=== PATIENT | male | born 1965 | race Caucasian/White ===

== ENCOUNTER 2019-07-07 11:07 | Emergency (ER) | payer OTHER, SELFPAY ==
[2019-07-07 11:13] VITALS: BP 160/133; PULSE 108; RESP 18; TEMP 36.4; O2SAT 94; BMI 32.8
--- NOTE | 2019-07-07 11:23 | ED_ITS ---
Entered by Kalpana Vivas, acting as scribe for Deborah Mari MD, [facility] [place], [place] 11:07 HPI - Chest Pain General: Chief Complaint: Chest Pain Stated Complaint: chest pain Time Seen by Provider: 07/07/19 11:23 Source: patient and RN notes reviewed Mode of arrival: ambulatory Limitations: no limitations History of Present Illness: HPI narrative: 54 yo male presents to ED with complaints of chest pain. The patient states he woke sore between shoulder blades, at 0600 felt like was getting bad heart burn, ate a package of Rolaids and drank 3 bottles of water. The patient has had A-Fib in the past and is on 3 different medications for his A-Fib. He said what he is feeling now feels worse than it has been in the past. The patient was to have been taking a blood thinner (Xarelto) but he has not taken it for 2 weeks. MD complaint: chest pain Pertinent past history: other (A-Fib, COPD, CHF, HTN, Obstructive Sleep Apnea) Onset (ago): hour(s) (5.5 (0600)) Timing of current episode: constant Prior episodes: Yes Onset: during rest Pain location: substernal Pain radiation: left scapula and right scapula Severity: moderate Quality: aching Relieving factors: nothing Exacerbating factors: exertion and movement Context: non compliance with medication (Xarelto) Associated symptoms: Reports palpitations; Deny abdominal pain, dyspnea, fever(s), nausea or vomiting Treatment prior to arrival: none Risk Factors: Coronary artery disease risk factors: hypertension Thoracic aortic dissection risk factors: none Pulmonary embolism risk factors: clotting disorder Review of Systems General: Reports: 10 or more systems reviewed and unremarkable except in HPI and below Const: Denies: fever, chills or body aches Eyes: Denies: change in vision or blurry vision ENMT: Denies: throat pain, enlarged tonsils, painful swallowing, hoarseness, mouth pain or swelling of lips/tongue Card: Reports: palpitations Resp: Denies: shortness of breath, productive cough or non-productive cough GI: Denies: abdominal pain, nausea or vomiting : Denies: flank pain, painful urination, urinary frequency, urinary urgency or urinary hesitancy Musc: Denies: neck pain, back pain or extremity swelling Skin/Breast: Denies: rash, itching or redness Neuro: Denies: headache, numbness in extremities or weakness in extremities Endo: Denies: excessive urination, excessive thirst or tired all the time PFSH ED PFSH: Medical History (Updated 07/07/19 @ 15:05 by Deborah Mari MD, [facility] [place] Atrial fibrillation CHF (congestive heart failure) COPD (chronic obstructive pulmonary disease) Hypercholesteremia Hypertension Obstructive sleep apnea Social History Smoking and tobacco status: current every day smoker Alcohol intake: current Alcohol intake frequency: holidays/special occasions only Physical Exam Const: COMMON NORMALS: no apparent distress, average body habitus, oriented x3, no limitations, healthy appearing, alert and well nourished HENMT: COMMON NORMALS: normocephalic, head/scalp atraumatic and moist oral mucous membranes HEAD & SCALP: normocephalic and atraumatic Eye: COMMON NORMALS: PERRL, EOMs intact bilaterally, conjunctivae normal and no scleral icterus CONJUNCTIVA: Yes conjunctivae normal PUPIL: Yes PERRL Neck/C-Spine: COMMON NORMALS: full ROM, supple, no meningeal signs, no JVD and no carotid bruits Chest: COMMONS NORMALS: inspection of chest normal and palpation of chest normal Resp: COMMON NORMALS: normal respiratory effort, no retractions, no use of accessory muscles, clear to auscultation bilaterally and percussion normal AUSCULTATION: clear to auscultation bilaterally PERCUSSION: percussion normal Cardio: COMMON NORMALS: no JVD, S1 normal heart sound, S2 normal heart sound, no gallops, no clicks, no murmurs, no rub and peripheral pulses 2+ throughout RATE: tachycardic RHYTHM: abnormal rhythm irregularly irregular HEART SOUNDS: S1 normal and S2 normal PERIPHERAL PULSES: pulses 2+ throughout GI: COMMON NORMALS: normal to inspection, nondistended, normoactive bowel sounds, soft to palpation, non-tender, no hepatosplenomegaly, no masses and no bruits PALPATION: Yes soft and Yes no hepatosplenomegaly : COMMON NORMALS: Yes no CVA tenderness BLADDER/KIDNEY EXAM: Yes no CVA tenderness Back/Pelvis: COMMON NORMALS: no CVA tenderness Extremity: COMMON NORMALS: normal to inspection, full ROM, normal capillary refill, no calf tenderness and no pedal edema Neuro: COMMON NORMALS: oriented x3 SENSORIUM/ORIENTATION: Yes alert MENINGEAL SIGNS: Yes no meningeal signs Skin: COMMON NORMALS: no rashes or lesions noted, no wounds, skin turgor normal, no jaundice, no petechiae and no mottling GENERAL SKIN EXAM: no rashes or lesions noted and turgor normal Course Reevaluation(s): Reevaluation #1: Patient seen. He is is sinus rhythm. HR is in the 70's. He is feeling better and is ready to be discharged. Discussed his lab and imaging findings with him. Negative for acute findings. We will discharge him home and he is advised to call his vegetable grower for follow-up. He voiced understanding and is in agreement with this plan. Time: 14:58 Vital Signs: Vital signs: Vital Signs Temperature 97.7 F 07/07/19 15:28 Pulse Rate 79 07/07/19 15:28 Respiratory Rate 16 07/07/19 15:28 Blood Pressure 146/96 07/07/19 15:28 Pulse Oximetry 95 07/07/19 15:28 MDM - Chest Pain MDM Narrative: Medical decision making narrative: 54-year-old gentleman who presents to the emergency department in atrial fibrillation with rapid ventricular response. He has a history of A. fib and several years ago had an ablation. He has been stable and fine since then, however he takes metoprolol, sotalol, diltiazem for his A. fib. Symptoms started earlier today and persisted. Associated symptoms included ches t pain. Patient needed 2 doses of intravenous diltiazem tablets the RVR and convert him into sinus rhythm. The patient was not interested in hospital admission and wanted to be discharged home. He is therefore discharged home to follow-up with his primary care provider and his vegetable grower. Medical Records: Attestation: I reviewed the patient's medical records. Lab Data: Attestation: I reviewed the patient's lab results. Labs: Lab Results 07/07/19 07/07/19 07/07/19 Range/Units 11:42 11:42 12:11 WBC 7.0 (4.0-10.0) 10^3/ uL RBC 5.30 (4.1-5.3) 10^6/u L Hgb 17.3 H (11.7-16.6) g/dL Hct 49.2 (42.0-52.0) % MCV 92.8 (80-94) fL MCH 32.6 (28.0-34.0) pg MCHC 35.2 (30.0-36.0) g/dL RDW 12.0 L (12.1-15.1) % Plt Count 253 (130-400) 10^3/c mm MPV 10.3 (7.4-10.4) fL Neut % (Auto) 50.6 % Lymph % (Auto) 35.5 % [place] % (Auto) 9.0 % Eos % (Auto) 4.0 % Baso % (Auto) 0.6 % Neut # (Auto) 3.6 (1.8-7.7) 10^3/u L Lymph # (Auto) 2.5 (0.8-4.8) 10^3/u L [place] # (Auto) 0.6 (0.2-0.9) 10^3/u L Eos # (Auto) 0.3 (0.0-0.8) 10^3/u L Baso # (Auto) 0.0 (0.0-0.1) 10^3/u L Nucleated RBC % (a uto) 0 % Nucleated RBCs # 0.0 /100WBC PT 13.80 H (10.5-13.3) SECO NDS INR 1.03 (0.8-1.2) Sodium (136-145) mmol/L Potassium (3.5-5.1) mmol/L Chloride (98-107) mmol/L Carbon Dioxide (22-29) mmol/L Anion Gap (5-19) BUN (6-20) mg/dL Creatinine (0.7-1.2) mg/dL GFR Calculation (90-130) mL/min Glucose (65-115) mg/dL Calcium (8.5-10.5) mg/dL Total Bilirubin (0.15-1.2) mg/dL AST (0-40) U/L ALT (0-41) U/L Alkaline Phosphata se (40-130) IU/L Troponin T Baselin e 6 (0-15) ng/mL Troponin T 120 Min [place] (0-15) ng/mL Delta Troponin T (0-10) ABS# NT-Pro-B Natriuret Pep (0-125) pg/mL Total Protein (6.6-8.7) g/dL Albumin (3.5-5.2) g/dL Globulin (1.3-4.6) g/dL TSH (0.27-4.20) uIU/ mL Urine Color (Yellow) Urine Appearance (CLEAR) Urine pH (5-7) Ur Specific Gravit y (1.005-1.030) Urine Protein (Negative) Urine Glucose (UA) (Normal) Urine Ketones (Negative) Urine Blood (Negative) Urine Nitrate (Negative) Urine Bilirubin (NEGATIVE) Urine Urobilinogen (Negative) mg/dL Ur Leukocyte Yolis ase (Negative) Urine Opiates Scre en (Negative) ng/mL Ur Barbiturates Sc reen (Negative) ng/mL Ur Phencyclidine S crn (Negative) ng/mL Ur Amphetamines Sc reen (Negative) ng/mL U Benzodiazepines Scrn (Negative) ng/mL Urine Cocaine Scre en (Negative) ng/mL U Marijuana (THC) Screen (Negative) ng/mL 07/07/19 07/07/19 07/07/19 Range/Units 12:11 12:40 12:40 WBC (4.0-10.0) 10^3/ uL RBC (4.1-5.3) 10^6/u L Hgb (11.7-16.6) g/dL Hct (42.0-52.0) % MCV (80-94) fL MCH (28.0-34.0) pg MCHC (30.0-36.0) g/dL RDW (12.1-15.1) % Plt Count (130-400) 10^3/c mm MPV (7.4-10.4) fL Neut % (Auto) % Lymph % (Auto) % [place] % (Auto) % Eos % (Auto) % Baso % (Auto) % Neut # (Auto) (1.8-7.7) 10^3/u L Lymph # (Auto) (0.8-4.8) 10^3/u L [place] # (Auto) (0.2-0.9) 10^3/u L Eos # (Auto) (0.0-0.8) 10^3/u L Baso # (Auto) (0.0-0.1) 10^3/u L Nucleated RBC % (a uto) % Nucleated RBCs # /100WBC PT (10.5-13.3) SECO NDS INR (0.8-1.2) Sodium 136 (136-145) mmol/L Potassium 4.1 (3.5-5.1) mmol/L Chloride 102 (98-107) mmol/L Carbon Dioxide 20 L (22-29) mmol/L Anion Gap 18.1 (5-19) BUN 17 (6-20) mg/dL Creatinine 0.7 (0.7-1.2) mg/dL GFR Calculation 117.5 (90-130) mL/min Glucose 109 (65-115) mg/dL Calcium 10.6 H (8.5-10.5) mg/dL Total Bilirubin 0.7 (0.15-1.2) mg/dL AST 43 H (0-40) U/L ALT 97 H (0-41) U/L Alkaline Phosphata se 72 (40-130) IU/L Troponin T Baselin e (0-15) ng/mL Troponin T 120 Min [place] (0-15) ng/mL Delta Troponin T (0-10) ABS# NT-Pro-B Natriuret Pep 780 H (0-125) pg/mL Total Protein 7.1 (6.6-8.7) g/dL Albumin 4.5 (3.5-5.2) g/dL Globulin 2.6 (1.3-4.6) g/dL TSH 1.37 (0.27-4.20) uIU/ mL Urine Color Yellow (Yellow) Urine Appearance Clear (CLEAR) Urine pH 6.0 (5-7) Ur Specific Gravit y 1.015 (1.005-1.030) Urine Protein Neg (Negative) Urine Glucose (UA) Norm (Normal) Urine Ketones Negative (Negative) Urine Blood Neg (Negative) Urine Nitrate Negative (Negative) Urine Bilirubin Neg (NEGATIVE) Urine Urobilinogen Norm (Negative) mg/dL Ur Leukocyte Yolis ase Negative (Negative) Urine Opiates Scre en Negative (Negative) ng/mL Ur Barbiturates Sc reen Negative (Negative) ng/mL Ur Phencyclidine S crn Negative (Negative) ng/mL Ur Amphetamines Sc reen Negative (Negative) ng/mL U Benzodiazepines Scrn Negative (Negative) ng/mL Urine Cocaine Scre en Negative (Negative) ng/mL U Marijuana (THC) Screen Negative (Negative) ng/mL 07/07/19 Range/Units 14:10 WBC (4.0-10.0) 10^3/ uL RBC (4.1-5.3) 10^6/u L Hgb (11.7-16.6) g/dL Hct (42.0-52.0) % MCV (80-94) fL MCH (28.0-34.0) pg MCHC (30.0-36.0) g/dL RDW (12.1-15.1) % Plt Count (130-400) 10^3/c mm MPV (7.4-10.4) fL Neut % (Auto) % Lymph % (Auto) % [place] % (Auto) % Eos % (Auto) % Baso % (Auto) % Neut # (Auto) (1.8-7.7) 10^3/u L Lymph # (Auto) (0.8-4.8) 10^3/u L [place] # (Auto) (0.2-0.9) 10^3/u L Eos # (Auto) (0.0-0.8) 10^3/u L Baso # (Auto) (0.0-0.1) 10^3/u L Nucleated RBC % (a uto) % Nucleated RBCs # /100WBC PT (10.5-13.3) SECO NDS INR (0.8-1.2) Sodium (136-145) mmol/L Potassium (3.5-5.1) mmol/L Chloride (98-107) mmol/L Carbon Dioxide (22-29) mmol/L Anion Gap (5-19) BUN (6-20) mg/dL Creatinine (0.7-1.2) mg/dL GFR Calculation (90-130) mL/min Glucose (65-115) mg/dL Calcium (8.5-10.5) mg/dL Total Bilirubin (0.15-1.2) mg/dL AST (0-40) U/L ALT (0-41) U/L Alkaline Phosphata se (40-130) IU/L Troponin T Baselin e (0-15) ng/mL Troponin T 120 Min [place] 6.00 (0-15) ng/mL Delta Troponin T 0 (0-10) ABS# NT-Pro-B Natriuret Pep (0-125) pg/mL Total Protein (6.6-8.7) g/dL Albumin (3.5-5.2) g/dL Globulin (1.3-4.6) g/dL TSH (0.27-4.20) uIU/ mL Urine Color (Yellow) Urine Appearance (CLEAR) Urine pH (5-7) Ur Specific Gravit y (1.005-1.030) Urine Protein (Negative) Urine Glucose (UA) (Normal) Urine Ketones (Negative) Urine Blood (Negative) Urine Nitrate (Negative) Urine Bilirubin (NEGATIVE) Urine Urobilinogen (Negative) mg/dL Ur Leukocyte Yolis ase (Negative) Urine Opiates Scre en (Negative) ng/mL Ur Barbiturates Sc reen (Negative) ng/mL Ur Phencyclidine S crn (Negative) ng/mL Ur Amphetamines Sc reen (Negative) ng/mL U Benzodiazepines Scrn (Negative) ng/mL Urine Cocaine Scre en (Negative) ng/mL U Marijuana (THC) Screen (Negative) ng/mL Imaging Data^: CXR: Radiologist's impression: [address] [address] XRay Report Signed Patient: Dung Gomez #: [id number] : 1965Acct#:[id number] Age/Sex: 54 / MADM Date: 07/07/19 Loc: ERRoom/Bed: Attending Dr: Ordering Provider/Ordering MD: Deborah Mari MD, [facility] [place] of Service: 07/07/19 Procedure(s): XR chest 1V portable [id number] Accession Number(s): [id number] Report Number: [id number] WS: [id number] XR chest 1V portable [id number] REASON FOR EXAM: chest pain FINDINGS: The cardiac silhouette is similar to the previous exam mildly enlarged. There is hyper aerated lung suggesting emphysema. There is fullness in the azygos lobe. This was seen on previous exam February 14, 2016 with no interval changes. There is no evidence of pneumothorax. The ribs appear to be within normal limits. XR/XR chest 1V portable [id number] IMPRESSION: Moderate emphysema. Mildly enlarged heart. Dictated By:Tam Valadez DO Signed By:Tam Valadez DOSigned Date/Time:07/07/19 1229 DD/ EKG Data^: EKG 1: Attestation: I personally reviewed and interpreted this EKG as follows: EKG interpretation date: 07/07/19 EKG interpretation time: 11:17 Interpretation: Atrial fibrillation with rapid ventricular response. Heart rate 119 beats per minutes. EKG 2: Attestation: I personally reviewed and interpreted this EKG as follows: EKG interpretation date: 07/07/19 EKG interpretation time: 12:38 Prior EKG tracings: available for review Interpretation: Atrial fibrillation Heart rate 98 bpm. Status post 20 mg of intravenous diltiazem EKG 3: Attestation: I personally reviewed and interpreted this EKG as follows: EKG interpretation date: 07/07/19 EKG interpretation time: 13:57 Prior EKG tracings: available for review Interpretation: Now in sinus rhythm Heart rate [address] changes. Right ventricular conduction delay. Discharge Plan Discharge Patient Disposition: Home, Self-Care Clinical Impression: Atrial fibrillation with rapid ventricular response Condition: Stable Prescriptions: Continued aspirin [Aspir-81] 81 mg tablet,delayed release (DR/EC) 81 mg PO DAILY RF: 0 sotalol 80 mg tablet 80 mg PO BID Qty: 60 RF: 5 lisinopril 20 mg tablet 20 mg PO BID Qty: 60 RF: 3 metoprolol tartrate 50 mg tablet 50 mg PO BID Qty: 60 RF: 5 Xarelto 20 mg tablet 20 mg PO DAILY Qty: 90 RF: 3 Multiple Vitamins Tablet 1 tab PO DAILY RF: 0 Zyrtec 10 mg Tablet 10 mg PO DAILY RF: 0 citalopram 10 mg tablet 10 mg PO DAILY RF: 0 sildenafil (pulm.hypertension) 20 mg tablet See Rx Instructions .ROUTE .COMPLEX RF: 0 Symbicort 160-4.5 mcg/actuation HFA aerosol inhaler 2 puff INHALATION BID RF: 0 apple cider vinegar 1 tab PO DAILY RF: 0 diltiazem HCl 240 mg capsule,extended release 24 hr 240 mg PO BID RF: 0 Discharge Orders: Discharge Order (Routine); Ordered 07/07/19 Ordered By: Deborah Mari Referrals: Amber Bernabe MD [Physician] - 1-3 days Ronal Mckenzie DO [Primary Care Provider] - 1-3 days Patient Instructions: Atrial Fibrillation (ED) Activity Restrictions/Additional Instructions: Return for any new or worsening symptoms. Follow up with your vegetable grower as soon as you can. Follow up with your Primary care provider within one week. Continue your medications as prescribed. Discharge Date/Time: 07/07/19 15:29 Coding Level of Care Code ED Metal Fabrication Supervisor for Chg Fwd Exam Comprehensive The documentation recorded by the Ortega lewis Valerie R, accurately reflects the service I personally performed and the decisions made by , Deborah Mari MD, [facility] [place] Jul 07, 2019 11:07
--- NOTE | 2019-07-07 11:34 | ECG_ITS ---
Measurements Intervals [place] Rate: 98 P: MA: 0 QRS: 27 QRSD: 82 T: 59 QT: 354 QTc: 452 ATRIAL FIBRILLATION NONSPECIFIC T-WAVE ABNORMALITY Compared to ECG 04/05/2016 07:21:05 T-wave abnormality now present Myocardial infarct finding no longer present Electronically Signed On 07-07-2019 17:57:56 AIRPLANE RIGGER by Amber Bernabe M.D. [id number]
--- NOTE | 2019-07-07 11:34 | XR_ITS ---
WS: [id number] XR chest 1V portable [id number] REASON FOR EXAM: chest pain FINDINGS: The cardiac silhouette is similar to the previous exam mildly enlarged. There is hyper aerated lung suggesting emphysema. There is fullness in the azygos lobe. This was seen on previous exam February 14, 2016 with no interva l changes. There is no evidence of pneumothorax. The ribs appear to be within normal limits. XR/XR chest 1V portable [id number] IMPRESSION: Moderate emphysema. Mildly enlarged heart.
[2019-07-07 12:00] VITALS: BP 112/91; PULSE 111; RESP 14; O2SAT 95
[2019-07-07 12:00] LABS: Basophils % 0.6 %; Eosinophils # 0.3 10^3/uL (0.0-0.8); Hematocrit 49.2 % (42.0-52.0); Hemoglobin 17.3 g/dL (11.7-16.6); Lymphocytes # 2.5 10^3/uL (0.8-4.8); Lymphocytes % 35.5 %; Mean Corpuscular HGB Conc 35.2 g/dL (30.0-36.0); Mean Corpuscular Hemoglobin 32.6 pg (28.0-34.0); Mean Corpuscular Volume 92.8 fL (80-94); Mean Platelet Volume 10.3 fL (7.4-10.4); Monocytes # 0.6 10^3/uL (0.2-0.9); Neutrophils # 3.6 10^3/uL (1.8-7.7); Neutrophils % 50.6 %; Nucleated Red Blood Cells % 0 %; Platelet Count 253 10^3/cmm (130-400)
--- NOTE | 2019-07-07 12:03 | PC.NURSE ---
Patient reports to ED with complaints of chest pressure since this AM. Patient reports history of A Fib, states he has not been taking his blood thinners. Patient reports using sinus medicine and nasal spray. Patient reports pain is just an uncomfortable pressure.
--- NOTE | 2019-07-07 12:05 | PC.NURSE ---
Patient given 20 mg Cardizem. Patient heart rate showing sinus rhythm, converting to a fib occasionally with an improvement in heart rate from 120-140 down to 90-118 at this time.
[2019-07-07 12:06] LABS: INR 1.03 (0.8-1.2)
[2019-07-07 12:38] LABS: Troponin(5th) Baseline 6 ng/mL (0-15)
[2019-07-07 12:50] VITALS: BP 155/94; PULSE 110; RESP 16; O2SAT 96
[2019-07-07 12:51] LABS: Alanine Aminotransferase 97 U/L (0-41); Albumin Level 4.5 g/dL (3.5-5.2); Alkaline Phosphatase 72 IU/L (40-130); Anion Gap 18.1 (5-19); Aspartate Amino Transferase 43 U/L (0-40); Blood Urea Nitrogen 17 mg/dL (6-20); Calcium 10.6 mg/dL (8.5-10.5); Carbon Dioxide 20 mmol/L (22-29); Chloride 102 mmol/L (98-107); Creatinine Clr Calc Pharmacy 149.8475; Globulin 2.6 g/dL (1.3-4.6); Glomerular Filtration Rate 117.5 mL/min (90-130); Glucose 109 mg/dL (65-115); NT Pro B Type Natriuretic Pept 780 pg/mL (0-125); Potassium 4.1 mmol/L (3.5-5.1); Sodium 136 mmol/L (136-145); Thyroid Stimulating Hormone 1.37 uIU/mL (0.27-4.20); Total Bilirubin 0.7 mg/dL (0.15-1.2); Total Protein 7.1 g/dL (6.6-8.7)
[2019-07-07 12:56] LABS: Add Urine Microscopic? NO
[2019-07-07 13:05] LABS: Bilirubin Urine Neg (NEGATIVE); Blood Urine Neg (Negative); Glucose Urine UA Norm (Normal); Ketones Urine Negative (Negative); Leukocyte Esterase Urine Negative (Negative); Nitrate Urine Negative (Negative); Protein Urine Neg (Negative); Specific Gravity, Urine 1.015 (1.005-1.030); Urine Appearance Clear (CLEAR); Urine Color Yellow (Yellow); Urobilinogen Urine Norm (Negative)
[2019-07-07 13:12] LABS: Amphetamines Screen Urine Negative (Negative); Barbiturates Screen Urine Negative (Negative); Benzodiazepines Screen Urine Negative (Negative); Cocaine Screen Urine Negative (Negative); Opiate Screen Urine Negative (Negative); PCP Screen Urine Negative (Negative); THC Screen Urine Negative (Negative)
--- NOTE | 2019-07-07 13:34 | ECG_ITS ---
Measurements Intervals [place] Rate: 119 P: DE: 0 QRS: 47 QRSD: 88 T: 53 QT: 347 QTc: 488 ATRIAL FIBRILLATION WITH RAPID VENTRICULAR RESPONSE MODERATE ST DEPRESSION [0.05+ mV ST DEPRESSION] Compared to ECG 04/05/2016 07:21:05 ST (T wave) deviation now present Myocardial infarct finding no longer present Electronically Signed On 07-07-2019 17:58:25 LEADITE WORKER by Amber Bernabe M.D. [email or web address]
[2019-07-07 14:00] VITALS: BP 139/95; PULSE 70; RESP 16; O2SAT 95
[2019-07-07 14:34] LABS: Troponin 5 2HR Delta 0 ABS# (0-10)
[2019-07-07 15:28] VITALS: BP 146/96; PULSE 79; RESP 16; TEMP 36.5; O2SAT 95
--- NOTE | 2019-07-08 10:20 | DCPLANNER ---
executive kitchen manager had message to schedule a follow up appointment for patient with [facility], Dr. Bernabe. executive kitchen manager called [facility], spoke with Dolores, senior case manager was told that a follow up appointment is scheduled for Wednesday, July 10, 2019 at 9:[address] Bernabe. Clinic will call patient with appointment information.
--- NOTE | 2019-07-16 14:10 | DCPLANNER ---
Patient did attend follow up appointment scheduled for 07.11.19 with [facility].
== END 2019-07-07 15:29 | disposition home or self-care (01) ==
PROVIDERS: Emergency Provider Family Medicine; Family Provider Internal Medicine; PCP Internal Medicine
DX: I48.91 Unspecified atrial fibrillation (principal); I11.0 Hypertensive heart disease with heart failure; I50.9 Heart failure, unspecified; J44.9 Chronic obstructive pulmonary disease, unspecified; E78.00 Pure hypercholesterolemia, unspecified; F17.200 Nicotine dependence, unspecified, uncomplicated; Z79.01 Long term (current) use of anticoagulants; Z79.82 Long term (current) use of aspirin; Z79.51 Long term (current) use of inhaled steroids
CPT/HCPCS: 36415; 71045; 80053; 80307; 81003; 83880; 84443; 84484; 85025; 85610; 93005; 96374; 96375; 96376; 99283; 99284; J3490

== ENCOUNTER 2019-07-25 08:42 | Inpatient (IN) | payer OTHER, SELFPAY ==
[2019-07-25] VITALS (10 sets, daily range): BP systolic 129–165; BP diastolic 91–114; PULSE 65–104; RESP 16–22; TEMP 36.6–36.8; O2SAT 93–98; BMI 32.5
--- NOTE | 2019-07-25 08:57 | XR_ITS ---
WS: [id number] XR chest 1V portable [id number] REASON FOR EXAM: cp FINDINGS: The cardiac silhouette is borderline enlarged. The lung allred are clear there is no pneumonia, pleural effusion, pulmonary edema, or pneumothorax. The hilum measures are normal. The chest is similar to previous exam July 07, 2019. XR/XR chest 1V portable [id number] IMPRESSION: Negative chest for active pathology.
--- NOTE | 2019-07-25 08:59 | ED_ITS ---
Entered by Tatum Arevalo, acting as scribe for Mallory Tong MD HPI - Arrhythmia/Palpitations General: Chief Complaint: Arrhythmia/Palpitations Stated Complaint: CP Time Seen by Provider: 07/25/19 08:57 Source: patient Mode of arrival: ambulatory Limitations: no limitations History of Present Illness: HPI narrative: 54-year-old male that has a history of A. fib states that he has had palpitations today. He states his heart rate was in the 110s and have some burning in his chest. He states he has had increased difficulty controlling his rate over the last month. He is on multiple meds including metoprolol sotalol and Cardizem. He denies any fevers. He denies any shortness of breath. 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) Duration: constant Severity: moderate Context: occurred during exertion (at work) Arrhythmia history: atrial fibrillation Associated symptoms: Reports no associated symptoms; Deny nausea or vomiting Review of Systems Const: Denies: fever, chills, body aches or change in appetite Eyes: Denies: blurry vision or eye discomfort ENMT: Denies: enlarged tonsils Resp: Denies: shortness of breath GI: Denies: abdominal pain, nausea, vomiting or diarrhea : Denies: painful urination Musc: Denies: neck pain or back pain Skin/Breast: Denies: rash Neuro: Denies: headache Psych: Denies: depression Nikita/Lymph: Denies: easy bruising All/Imm: Denies: hives PFSH ED PFSH: Social History Smoking and tobacco status: current every day smoker Alcohol intake: current Alcohol intake frequency: holidays/special occasions only Physical Exam Const: COMMON NORMALS: no apparent distress, oriented x3 and healthy appearing HENMT: COMMON NORMALS: normocephalic and head/scalp atraumatic HEAD & SCALP: normocephalic and atraumatic Eye: COMMON NORMALS: PERRL and EOMs intact bilaterally PUPIL: Yes PERRL Neck/C-Spine: COMMON NORMALS: full ROM and supple Chest: COMMONS NORMALS: inspection of chest normal and palpation of chest normal Resp: COMMON NORMALS: normal respiratory effort, no retractions, no use of accessory muscles and clear to auscultation bilaterally AUSCULTATION: clear to auscultation bilaterally Cardio: RATE: tachycardic RHYTHM: abnormal rhythm irregularly irregular GI: COMMON NORMALS: normal to inspection, nondistended, normoactive bowel sounds, soft to palpation, non-tender and no masses PALPATION: Yes soft Extremity: COMMON NORMALS: normal to inspection and full ROM Neuro: COMMON NORMALS: oriented x3, moves all extremities and no focal motor deficits Psych: COMMON NORMALS: mental status grossly normal, thought process normal and cooperative THOUGHT PROCESS: normal thought process Skin: COMMON NORMALS: no rashes or lesions noted and no wounds GENERAL SKIN EXAM: no rashes or lesions noted Course Vital Signs: Vital signs: Vital Signs Temperature 97.8 F 07/25/19 08:45 Pulse Rate 86 07/25/19 11:13 Respiratory Rate 16 07/25/19 11:13 Blood Pressure 160/114 07/25/19 11:13 Pulse Oximetry 95 07/25/19 11:13 MDM - Arrhythmia/Palpitations MDM Narrative: Medical decision making narrative: Patient presents here with Aaron barroso. I spoke to his make up man Dr. Zimmer they have been having a hard time control his rate at home. Patient's heart rate is improved here after 2 doses of Cardizem but she recommended admission and increase his sotalol. I spoke to make up man on-call Dr. Peterson who is admitting at this time. Lab Data: Labs: Lab Results 07/25/19 07/25/19 07/25/19 Range/Units 09:00 09:00 09:00 WBC 6.5 (4.0-10.0) 10^3/ uL RBC 5.07 (4.1-5.3) 10^6/u L Hgb 16.9 H (11.7-16.6) g/dL Hct 49.6 (42.0-52.0) % MCV 97.8 H (80-94) fL MCH 33.3 (28.0-34.0) pg MCHC 34.1 (30.0-36.0) g/dL RDW 12.1 (12.1-15.1) % Plt Count 234 (130-400) 10^3/c mm MPV 10.3 (7.4-10.4) fL Neut % (Auto) 58.7 % Lymph % (Auto) 26.9 % [place] % (Auto) 9.8 % Eos % (Auto) 3.5 % Baso % (Auto) 0.8 % Neut # (Auto) 3.8 (1.8-7.7) 10^3/u L Lymph # (Auto) 1.8 (0.8-4.8) 10^3/u L [place] # (Auto) 0.6 (0.2-0.9) 10^3/u L Eos # (Auto) 0.2 (0.0-0.8) 10^3/u L Baso # (Auto) 0.1 (0.0-0.1) 10^3/u L Nucleated RBC % (a uto) 0 % Nucleated RBCs # 0.0 /100WBC Sodium 140 (136-145) mmol/L Potassium 4.4 (3.5-5.1) mmol/L Chloride 102 (98-107) mmol/L Carbon Dioxide 24 (22-29) mmol/L Anion Gap 18.4 (5-19) BUN 17 (6-20) mg/dL Creatinine 0.7 (0.7-1.2) mg/dL GFR Calculation 117.5 (90-130) mL/min Glucose 149 H (65-115) mg/dL Calculated Osmolal ity 289 (285-295) mOsm/k g Calcium 9.4 (8.5-10.5) mg/dL Total Bilirubin 0.6 (0.15-1.2) mg/dL AST 75 H (0-40) U/L ALT 132 H (0-41) U/L Alkaline Phosphata se 74 (40-130) IU/L Troponin T Baselin e 6 (0-15) ng/mL Total Protein 7.4 (6.6-8.7) g/dL Albumin 4.3 (3.5-5.2) g/dL Globulin 3.1 (1.3-4.6) g/dL Imaging Data^: CXR: Radiologist's impression: [address] [place] [address] XRay Report Signed Patient: Dung Gomez Unit #: [id number] : 1965 Age/Sex: 54 / M ADM Date: 07/25/19 Loc: ER Room/Bed: Attending Dr: Ordering Provider/Ordering MD: Mallory Tong MD Date of Service: 07/25/19 Procedure(s): XR chest 1V portable [id number] Accession Number(s): [id number] Report Number: [id number] WS: [id number] XR chest 1V portable [id number] REASON FOR EXAM: cp FINDINGS: The cardiac silhouette is borderline enlarged. The lung allred are clear there is no pneumonia, pleural effusion, pulmonary edema, or pneumothorax. The hilum measures are normal. The chest is similar to previous exam July 07, 2019. XR/XR chest 1V portable [id number] IMPRESSION: Negative chest for active pathology. EKG Data^: EKG 1: Attestation: I personally reviewed and interpreted this EKG as follows: EKG interpretation date: 07/25/19 EKG interpretation time: 08:51 Interpretation: afib hr [address] or t wave abnormalities qrs 89 qtc 409 Other EKG comments: Chest X-Ray 07/25/19 08:57 IMPRESSION: Negative chest for active pathology. EKG 2: Attestation: I personally reviewed and interpreted this EKG as follows: EKG interpretation date: 07/25/19 EKG interpretation time: 10:24 Interpretation: Atrial fib heart rate [address] or T wave abnormalities QRS 81 QTc 420 Other EKG comments: Chest X-Ray 07/25/19 08:57 IMPRESSION: Negative chest for active pathology. 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
--- NOTE | 2019-07-25 09:02 | PC.NURSE ---
Pt states he gets short of breath when his A fib gets rapid.
--- NOTE | 2019-07-25 09:06 | PC.NURSE ---
Radiology to room
[2019-07-25 09:08] LABS: Basophils # 0.1 10^3/uL (0.0-0.1); Basophils % 0.8 %; Eosinophils # 0.2 10^3/uL (0.0-0.8); Eosinophils % 3.5 %; Hematocrit 49.6 % (42.0-52.0); Hemoglobin 16.9 g/dL (11.7-16.6); Lymphocytes # 1.8 10^3/uL (0.8-4.8); Lymphocytes % 26.9 %; Mean Corpuscular HGB Conc 34.1 g/dL (30.0-36.0); Mean Corpuscular Hemoglobin 33.3 pg (28.0-34.0); Mean Corpuscular Volume 97.8 fL (80-94); Mean Platelet Volume 10.3 fL (7.4-10.4); Monocytes # 0.6 10^3/uL (0.2-0.9); Monocytes % 9.8 %; Neutrophils # 3.8 10^3/uL (1.8-7.7); Neutrophils % 58.7 %; Nucleated Red Blood Cells % 0 %; Platelet Count 234 10^3/cmm (130-400); Red Blood Count 5.07 10^6/uL (4.1-5.3); Red Cell Distribution Width 12.1 % (12.1-15.1); White Blood Count 6.5 10^3/uL (4.0-10.0)
[2019-07-25 09:26] LABS: Alanine Aminotransferase 132 U/L (0-41); Albumin Level 4.3 g/dL (3.5-5.2); Alkaline Phosphatase 74 IU/L (40-130); Anion Gap 18.4 (5-19); Aspartate Amino Transferase 75 U/L (0-40); Blood Urea Nitrogen 17 mg/dL (6-20); Calcium 9.4 mg/dL (8.5-10.5); Carbon Dioxide 24 mmol/L (22-29); Chloride 102 mmol/L (98-107); Creatinine Clr Calc Pharmacy 149.2284; Globulin 3.1 g/dL (1.3-4.6); Glomerular Filtration Rate 117.5 mL/min (90-130); Glucose 149 mg/dL (65-115); Osmolality Calculated 289 mOsm/kg (285-295); Potassium 4.4 mmol/L (3.5-5.1); Sodium 140 mmol/L (136-145); Total Bilirubin 0.6 mg/dL (0.15-1.2); Total Protein 7.4 g/dL (6.6-8.7)
--- NOTE | 2019-07-25 09:28 | ECG_ITS ---
Measurements Intervals [place] Rate: 80 P: [place]: 0 QRS: 55 QRSD: 81 T: 61 QT: 383 QTc: 444 ATRIAL FIBRILLATION SEPTAL MYOCARDIAL INFARCTION , OF INDETERMINATE AGE [40+ ms Q WAVE IN V1/V2] Compared to ECG 07/07/2019 12:38:10 Myocardial infarct finding now present T-wave abnormality no longer present Electronically Signed On 07-25-2019 10:59:27 CDT by Marques Henry [id number]
[2019-07-25] MEDS: sodium chloride 0.9% 1,000 ML 999 ML IV (09:36)
[2019-07-25 09:44] LABS: Troponin(5th) Baseline 6 ng/mL (0-15)
[2019-07-25 11:27] LABS: Troponin 5 2HR Delta 0 ABS# (0-10)
--- NOTE | 2019-07-25 11:28 | ECG_ITS ---
Measurements Intervals [place] Rate: 105 P: [place]: 0 QRS: 57 QRSD: 89 T: 47 QT: 348 QTc: 462 ATRIAL FIBRILLATION WITH RAPID VENTRICULAR RESPONSE MODERATE ST DEPRESSION [0.05+ mV ST DEPRESSION] Compared to ECG 07/07/2019 12:38:10 ST (T wave) deviation now present T-wave abnormality no longer present Electronically Signed On 07-25-2019 10:59:52 CDT by Marques Henry [email or web address]
--- NOTE | 2019-07-25 12:29 | USCV_ITS ---
Dung Gomez Age: 54 Gender: M : 1965 Exam Date: 07/25/2019 16:02 Ordering Phys: Amber Bernabe MD ([email or web address]) Technologist: Storm Hutchinson Exam Location: [facility] [place] Indication: CARDIOVERSION BP: / HR: Rhythm: Sinus Technical Quality: Good MEASUREMENTS (Male / Female) Normal Values Medications Sedation by anesthesia. Complications Intubation attempts x1, blood on probe post procedure. No manuel- or post procedural complications. Proc. Components Multiple images were obtained at mid esophageal and transgastric levels. FINDINGS Left Ventricle Normal left ventricular size, systolic function and wall thickness, with no regional wall motion abnormalities. Left ventricular ejection fraction is estimated at 65%. Right Ventricle Normal right ventricular size and systolic function. Right Atrium Normal right atrial size. Left Atrium Mildly increased left atrial size. LA Appendage Normal left atrial appendage. No thrombus visualized in the left atrial appendage. IA Septum Normal interatrial septum. No patent foramen ovale. No evidence for an atrial septal defect. Mitral Valve Mildly thickened mitral valve. Mild prolapse of anterior and posterior leaflets. Elongated anterior mitral valve leaflet. No mitral valve stenosis. Mild-moderate mitral valve regurgitation. Aortic Valve Structurally normal trileaflet aortic valve. No aortic valve stenosis. No aortic valve regurgitation. Tricuspid Valve Structurally normal tricuspid valve. No tricuspid valve stenosis. Mild tricuspid valve regurgitation. Pulmonic Valve Structurally normal pulmonic valve. Trace pulmonary valve regurgitation. Pericardium No pericardial effusion. Aorta Normal sized aortic root. Proximal ascending aorta mildly dilated measured at 40 mm anteroposteriorly. No aortic dissection or aneurysm noted. CONCLUSIONS 1. Normal left ventricular size, systolic function and wall thickness, with no regional wall motion abnormalities. Left ventricular ejection fraction is estimated at 65%. 2. Mildly increased left atrial size. 3. Mild prolapse of anterior and posterior leaflets. Elongated anterior mitral valve leaflet. Mild-moderate mitral valve regurgitation. 4. Mild tricuspid valve regurgitation. Amber Bernabe MD (Electronically Signed) Final Date: 01 August 2019 11:55 S
[2019-07-25] MEDS: FUROsemide 10 mg/mL SDV 2mL 20 MG IVP (12:36)
--- NOTE | 2019-07-25 12:38 | ECG_ITS ---
Measurements Intervals [place] Rate: 110 P: [place]: 0 QRS: 52 QRSD: 86 T: 39 QT: 363 QTc: 492 ATRIAL FIBRILLATION WITH RAPID VENTRICULAR RESPONSE NONSPECIFIC ST & T-WAVE ABNORMALITY ABNORMAL RHYTHM ECG Compared to ECG 07/25/2019 10:24:05 T-wave abnormality now present Myocardial infarct finding no longer present Electronically Signed On 07-25-2019 20:05:53 CDT by Amber Bernabe M.D. [email or web address]
--- NOTE | 2019-07-25 12:40 | PM.HP ---
Providers/Chief Complaint Admitting Physician: Amber Bernbae MD Primary Care Provider: Ronal Mckenzie DO Chief Complaint: CP History of Present Illness Dung Gomez is a 54 year old man with h/o paroxysmal atrial fibrillation s/p CV x 2 in 04/2016 on Sotalol,metoprolol, cardizem and Xarelto. He also has h/o smoking, preserved LV function with LVEF of 60% in 02/2016, mild MR, Mild LA enlargement. He was diagnosed with sleep apnea and has been using CPAP with good results. He was evaluated by EP at [facility] and then sleep study was done. No f/o ablation. He was in the ER on 07/07/19 for atrial fib with RVR and converted to NSR after iv cardizem. I saw him after that in office and after discussion decision was made to take additional sotalol 40 mg as needed if he goes in a. fib again. He was doing well until last night when he noticed his HR fluctuating but did not think much of it and went to bed. He woke up at 4:30 am this morning and took his medication and while driving to work he felt palpitation with heart racing burning chest discomfort with it. He noticed his HR in 130's on fitbit. He took extra 1/2 tab sotalol and waited an hour and then came to ER for further evaluation. EKG showed atrial fibrillation with RVR and he received cardizem 15 mg IV followed by 10 mg IV but he did not convert. I was asked to evaluate and assist in further management. Review of Systems General: Reports: 10 or more systems reviewed and unremarkable except in HPI and below Const: Denies: fever or chills Eyes: Denies: change in vision ENMT: Denies: change in hearing Card: Reports: chest pain, palpitations and irregular heart rhythm; Denies: swelling of feet/ankles, lightheadedness, syncope, shortness of breath on exertion or shortness of breath when lying down Resp: Denies: shortness of breath, productive cough or non-productive cough GI: Denies: abdominal pain, nausea, vomiting, diarrhea, constipation, blood in stool or black tarry stool : Denies: difficulty urinating, painful urination or blood in urine Musc: Denies: extremity swelling or joint swelling Skin/Breast: Denies: rash Neuro: Denies: headache or weakness in extremities Psych: Denies: anxiety or depression Endo: Denies: change in body appearance Nikita/Lymph: Denies: petechiae or purpura All/Imm: Denies: throat swelling or tongue swelling Medications/Allergies Allergies Allergy/AdvReac Type Severity Reaction Status Date / Time No Known Allergies Allergy Unverified 06/20/19 11:06 Additional Medication Information Additional Medication Information: apple cider vinegar 1 tab PO DAILY aspirin (Aspir-) 81 mg PO DAILY budesonide-formoterol 160-4.5 mcg/actuation (Symbicort) 2 puffs inhalation BID cetirizine (Zyrtec) 10 mg PO DAILY citalopram 10 mg PO DAILY diltiazem HCl ER 240 mg PO BID lisinopril 20 mg PO BID metoprolol tartrate 50 mg PO am and 25 mg PO pm multivitamin (Multiple Vitamins) 1 tab PO DAILY rivaroxaban (Xarelto) 20 mg PO DAILY sotalol 80 mg PO BID PFSH Acute PFSH: Social History Smoking and tobacco status: current every day smoker Alcohol intake: current Alcohol intake frequency: holidays/special occasions only Vitals/I&O/Wt Last Vital Signs Temp 98.0 F 07/25/19 11:39 Pulse 84 07/25/19 11:39 Resp 22 H 07/25/19 11:39 BP 165/99 07/25/19 11:39 Pulse Ox 97 07/25/19 11:39 Weight last 48 hrs Weight 233 lb Physical Exam Const: COMMON NORMALS: no apparent distress, average body habitus, oriented x3, alert and well nourished GENERAL APPEARANCE: cooperative, comfortable, well kempt and well developed ORIENTATION/CONSCIOUSNESS: Yes oriented to person, Yes oriented to place and Yes oriented to time HENMT: COMMON NORMALS: normocephalic, head/scalp atraumatic, hearing grossly normal bilaterally, external ears normal, external nose normal, moist oral mucous membranes and oropharynx normal HEAD & SCALP: normocephalic and atraumatic FACE & SINUS: face symmetric NOSE: external nose normal EXTERNAL EAR: Yes external ears normal MOUTH: oral and palatal mucosa normal Eye: COMMON NORMALS: PERRL, EOMs intact bilaterally and conjunctivae normal ALIGNMENT: Yes alignment normal CONJUNCTIVA: Yes conjunctivae normal SCLERA: sclerae normal PUPIL: Yes PERRL Neck/C-Spine: COMMON NORMALS: no lymphadenopathy, supple, no JVD and thyroid normal; negative for no carotid bruits Resp: COMMON NORMALS: normal respiratory effort, no use of accessory muscles, clear to auscultation bilaterally and percussion normal AUSCULTATION: clear to auscultation bilaterally, no crackles, no rales, no rhonchi and no wheezes PERCUSSION: percussion normal Cardio: COMMON NORMALS: no JVD, regular rate, regular rhythm and peripheral pulses 2+ throughout; negative for no gallops and negative for no clicks JUGULAR VENOUS DISTENTION: no JVD PALPATION: normal PMI, no heave and no thrill RATE: regular rate RHYTHM: regular rhythm HEART SOUNDS: no murmurs BRUITS: no carotid bruits PERIPHERAL PULSES: pulses 2+ throughout GI: COMMON NORMALS: normal to inspection, nondistended, normoactive bowel sounds, soft to palpation and non-tender PALPATION: Yes soft PERCUSSION: tympanic to percussion RECTAL EXAM: Yes deferred Neuro: COMMON NORMALS: oriented x3 and no focal motor deficits SENSORIUM/ORIENTATION: Yes alert, Yes oriented to person, Yes oriented to place and Yes oriented to time CRANIAL NERVES: Yes CN normal except as noted Psych: COMMON NORMALS: thought process normal APPEARANCE: Yes well kempt MOOD & AFFECT: Yes euthymic mood THOUGHT PROCESS: normal thought process THOUGHT CONTENT: Yes normal thought content ATTENTION/CONCENTRATION: Yes attention grossly intact MEMORY/COGNITION: Yes memory grossly intact INSIGHT: insight good JUDGEMENT: judgment good Data : 07/25/19 09:00 07/25/19 09:00 Other Labs: AST-75, ALT-132, Baseline trop T-6 CXR: Radiologist's impression: (07/25/19) FINDINGS: The cardiac silhouette is borderline enlarged. The lung allred are clear there is no pneumonia, pleural effusion, pulmonary edema, or pneumothorax. The hilum measures are normal. The chest is similar to previous exam July 07, 2019. IMPRESSION: Negative chest for active pathology. EKG 1: I personally reviewed and interpreted this EKG as follows: My Interpretation: Atrial fibrillation with RVR. Non specific ST depression. QRSd 89 msec, QT/QTc 348/ 462 msec Prior ECG tracings: available for review Other data: # EKG: sinus rhythm with PVC's. RsR' probably normal variant. Non specific septal T wave changes. QRS-90 msec and QT/QTc 418/442 msec. A&P Assessment and plan (1) Atrial fibrillation: I will continue cardizem 240 mg twice a day, increase sotalol to 120 mg twice a day. Hold off on home metoprolol for now. -Plan for NICOLASA/CV later this afternoon. Status: Acute Qualifiers: Atrial fibrillation type: paroxysmal Qualified Code(s): I48.0 - Paroxysmal atrial fibrillation Code(s): I48.91 - Unspecified atrial fibrillation (2) CHF (congestive heart failure): HFpEF, Mildly decompensated in setting of atrial fibrillation with RVR. -lasix 20 mg IV x 1. May repeat later today Status: Acute Qualifiers: Heart failure chronicity: chronic Heart failure type: diastolic Qualified Code(s): I50.32 - Chronic diastolic (congestive) heart failure Code(s): I50.9 - Heart failure, unspecified (3) Hypercholesteremia: Status: Acute Code(s): E78.00 - Pure hypercholesterolemia, unspecified (4) Hypertension: Status: Acute Qualifiers: Hypertension type: essential hypertension Qualified Code(s): I10 - Essential (primary) hypertension Code(s): I10 - Essential (primary) hypertension (5) Obstructive sleep apnea: complinat with CPAP Status: Acute Code(s): G47.33 - Obstructive sleep apnea (adult) (pediatric) (6) COPD (chronic obstructive pulmonary disease): Status: Acute Code(s): J44.9 - Chronic obstructive pulmonary disease, unspecified Additional A&P Information Transaminitis:in setting of decompensated CHF DVT prohylaxis: on xarelto Full code Attestations Medical Necessity Statement*: Needs hospital stay for management of decompensated CHF and symptomatic atrial fibrillation with RVR Time Spent in Patient Care: Greater than 35 minutes (>than 50% of time spent in counselling and/or direct pt care on unit). Time spent explaining the procedure, management option and prognosis to the patient and getting consent. Coding Level of Care Code Acute School Physical Therapist for Chg Fwd Exam Comprehensive Diagnoses Atrial fibrillation I48.0 Atrial fibrillation type: paroxysmal CHF (congestive heart failure) I50.32 Heart failure chronicity: chronic Heart failure type: diastolic Hypercholesteremia E78.00 Hypertension I10 Hypertension type: essential hypertension Obstructive sleep apnea G47.33 COPD (chronic obstructive pulmonary disease) J44.9
[2019-07-25 13:54] LABS: Magnesium 1.9 mg/dL (1.7-2.3)
--- NOTE | 2019-07-25 14:49 | ANES.PREANE2 ---
Pre-Anesthetic Assessment Pre-Anesthetic Assessment: Height/Weight: Height 1.8 m Weight 105.687 kg Temp Pulse Resp BP Pulse Ox 98.0 F 102 H 22 H 165/99 95 07/25/19 11:39 07/25/19 13:01 07/25/19 11:39 07/25/19 11:39 07/25/19 13:01 Preop Diagnosis: a-fib Proposed Procedure: Operation Date: 07/25/19 17:00 Proposed Procedures p NICOLASA (Transesophageal Echocardiogram)(Not Applicable) - Amber Bernabe MD Last Intake: 08:30 Social: Social History: Tobacco Packs per day: 3/4 Pack years: 35+ Exam: Pre-Anes Outpt Exam: alert, oriented x 3 and clear to auscultation bilaterally Additional Exam Findings (including area of procedure): irreg, irreg, tachy at 108 Airway: Submandibular: WNL Cervical ROM: WNL MP: 2 Pulmonary: Pulmonary: COPD and Sleep apnea CV/HEM: CV/HEM: Afib, CHF and HTN Comments: preseved LV ftn, EF 60% cardioverted 04/21 with electricity, chemically 2weeks ago mild MR Metabolic: Metabolic: Hyperlipidemia Anesthetic Plan: ASA status: 4E Anesthesia: MAC Meds/Allergies Additional Medication Information: apple cider vinegar 1 tab PO DAILY aspirin (Aspir-) 81 mg PO DAILY budesonide-formoterol 160-4.5 mcg/actuation (Symbicort) 2 puffs inhalation BID cetirizine (Zyrtec) 10 mg PO DAILY citalopram 10 mg PO DAILY diltiazem HCl ER 240 mg PO BID lisinopril 20 mg PO BID metoprolol tartrate 50 mg PO am and 25 mg PO pm multivitamin (Multiple Vitamins) 1 tab PO DAILY rivaroxaban (Xarelto) 20 mg PO DAILY sotalol 80 mg PO BID PFSH Anesthesia PFSH: Social History Smoking and tobacco status: current every day smoker Alcohol intake: current Alcohol intake frequency: holidays/special occasions only Data Anesthesia CBC & Chem 7: 07/25/19 09:00 07/25/19 09:00 Other Labs: Laboratory Results - last 48 hr 07/25/19 07/25/19 07/25/19 09:00 09:00 09:00 WBC 6.5 RBC 5.07 Hgb 16.9 H Hct 49.6 MCV 97.8 H MCH 33.3 MCHC 34.1 RDW 12.1 Plt Count 234 MPV 10.3 Neut % (Auto) 58.7 Lymph % (Auto) 26.9 [place] % (Auto) 9.8 Eos % (Auto) 3.5 Baso % (Auto) 0.8 Neut # (Auto) 3.8 Lymph # (Auto) 1.8 [place] # (Auto) 0.6 Eos # (Auto) 0.2 Baso # (Auto) 0.1 Nucleated RBC % (auto) 0 Nucleated RBCs # 0.0 Sodium 140 Potassium 4.4 Chloride 102 Carbon Dioxide 24 Anion Gap 18.4 BUN 17 Creatinine 0.7 GFR Calculation 117.5 Glucose 149 H Calculated Osmolality 289 Calcium 9.4 Magnesium Total Bilirubin 0.6 AST 75 H ALT 132 H Alkaline Phosphatase 74 Troponin T Baseline 6 Troponin T 120 Minute Delta Troponin T Total Protein 7.4 Albumin 4.3 Globulin 3.1 07/25/19 07/25/19 09:00 11:03 WBC RBC Hgb Hct MCV MCH MCHC RDW Plt Count MPV Neut % (Auto) Lymph % (Auto) [place] % (Auto) Eos % (Auto) Baso % (Auto) Neut # (Auto) Lymph # (Auto) [place] # (Auto) Eos # (Auto) Baso # (Auto) Nucleated RBC % (auto) Nucleated RBCs # Sodium Potassium Chloride Carbon Dioxide Anion Gap BUN Creatinine GFR Calculation Glucose Calculated Osmolality Calcium Magnesium 1.9 Total Bilirubin AST ALT Alkaline Phosphatase Troponin T Baseline Troponin T 120 Minute 6.00 Delta Troponin T 0 Total Protein Albumin Globulin Cardiac Studies: No Data to Display
[2019-07-25] MEDS: sotalol 80 mg Tablet 120 MG PO (14:57)
--- NOTE | 2019-07-25 15:28 | ECG_ITS ---
Measurements Intervals [place] Rate: 97 P: [place]: 0 QRS: 46 QRSD: 95 T: 55 QT: 377 QTc: 479 ATRIAL FIBRILLATION WITH ABERRANT CONDUCTION OR VENTRICULAR PREMATURE COMPLEXES NONSPECIFIC T-WAVE ABNORMALITY Compared to ECG 07/25/2019 10:24:05 Ventricular premature complex(es) now present Aberrant conduction of supraventricular beat(s) now present T-wave abnormality now present Myocardial infarct finding no longer present Electronically Signed On 07-25-2019 20:05:28 CDT by Amber Bernabe M.D. [id number]
[2019-07-25 15:31] LABS: Troponin 5 6HR Delta 0 ng/L (0-12)
[2019-07-25] MEDS: lisinopril 20 mg Tablet PO (16:56)
--- NOTE | 2019-07-25 16:59 | PM.ACPR ---
Procedure/Consent Time out: Time Out Performed: Yes Consent: Consent for Procedure: Consent obtained from patient, Risks & Benefits reviewed and Agrees to proceed with procedure Procedure Narrative: NICOLASA Procedure note Indication: Symptomatic atrial fibrillation Sedation: Propofol by anesthesia Procedure was explained to the patient in detail and informed consent was obtained. Timeout was called. After achieving adequate sedation, the probe was inserted on first attempt. Small amount of blood on the probe post procedure. Prelim report: Normal left ventricle size and systolic function. No left atrial or left atrial appendage mass or thrombus visualized. No ASD or PFO identified. Full report to follow. Cardioversion procedure note. Indication: Symptomatic atrial fibrillation Anticoagulation: Xarelto Sedation: Propofol by anesthesia After ruling out left atrial/left atrial appendage thrombus, pads were placed anteroposteriorly. He received 150 J of synchronized biphasic shock ?1 with synagogue of normal sinus rhythm. Patient tolerated the procedure well. Recovery: In unit Acute Procedures Epistaxis Control: Time out performed: Yes
--- NOTE | 2019-07-25 17:30 | PC.NURSE ---
Dr. Bernabe request 1800 Cardizem dose held till 1900. Call before administering.
[2019-07-25] MEDS: nicotine 2 mg Gum BUCCAL (17:46)
--- NOTE | 2019-07-25 18:11 | PC.NURSE ---
NICOLASA/ Cardioversion [address] Florecita Inman, Lily Loyd, student services rep Sona Hopkins, PHILIP all agree on 2 patient identifiers and procedure. 1610 patient confirmed asleep 1610 NICOLASA probe in 1625 NICOLASA probe removed 1630 one shock administered 150j. Patient converted to NSR
--- NOTE | 2019-07-25 18:27 | ECG_ITS ---
Measurements Intervals [place] Rate: 73 P: 62 MI: 186 QRS: 50 QRSD: 96 T: 54 QT: 431 QTc: 476 SINUS RHYTHM POSSIBLE LEFT ATRIAL ENLARGEMENT [-0.1mV P WAVE IN V1/V2] INCOMPLETE RIGHT BUNDLE BRANCH BLOCK [90+ ms QRS DURATION, TERMINAL R IN V1/V2, 40 40+ ms S IN I/aVL/V4/V5/V6] Compared to ECG 07/25/2019 10:24:05 Incomplete right bundle-branch block now present Atrial fibrillation no longer present Myocardial infarct finding no longer present Electronically Signed On 07-25-2019 20:04:36 CDT by Amber Bernabe M.D. [id number]
--- NOTE | 2019-07-25 18:51 | PC.NURSE ---
Dr. Bernabe updated on patient status. Verbal order received to administer 120 mg Cardizem one time now, hold 240 mg dose of Cardizem until 07/26/19 morning dose.
[2019-07-25] MEDS: SYMBICORT 1 EACH PO (21:28)
[2019-07-26] VITALS (11 sets, daily range): BP systolic 122–142; BP diastolic 87–95; PULSE 46–78; RESP 13–20; TEMP 36.4–37.1; O2SAT 92–98
[2019-07-26] MEDS: sotalol 80 mg Tablet 120 MG PO ×2 (04:44→16:45)
[2019-07-26 05:05] LABS: Basophils % 0.7 %; Eosinophils # 0.2 10^3/uL (0.0-0.8); Eosinophils % 3.8 %; Hemoglobin 15.7 g/dL (11.7-16.6); Lymphocytes # 1.4 10^3/uL (0.8-4.8); Lymphocytes % 24.5 %; Mean Corpuscular HGB Conc 34.1 g/dL (30.0-36.0); Mean Corpuscular Hemoglobin 32.8 pg (28.0-34.0); Mean Platelet Volume 10.3 fL (7.4-10.4); Monocytes # 0.6 10^3/uL (0.2-0.9); Monocytes % 10.6 %; Neutrophils # 3.4 10^3/uL (1.8-7.7); Neutrophils % 60.2 %; Nucleated Red Blood Cells % 0 %; Platelet Count 203 10^3/cmm (130-400); Red Blood Count 4.79 10^6/uL (4.1-5.3); Red Cell Distribution Width 11.9 % (12.1-15.1); White Blood Count 5.6 10^3/uL (4.0-10.0)
[2019-07-26 05:17] LABS: Alanine Aminotransferase 113 U/L (0-41); Albumin Level 3.9 g/dL (3.5-5.2); Alkaline Phosphatase 54 IU/L (40-130); Aspartate Amino Transferase 59 U/L (0-40); Blood Urea Nitrogen 11 mg/dL (6-20); Calcium 9.2 mg/dL (8.5-10.5); Carbon Dioxide 29 mmol/L (22-29); Chloride 102 mmol/L (98-107); Creatinine Clr Calc Pharmacy 174.0998; Globulin 2.8 g/dL (1.3-4.6); Glomerular Filtration Rate 140.4 mL/min (90-130); Glucose 119 mg/dL (65-115); Magnesium 1.8 mg/dL (1.7-2.3); Osmolality Calculated 285 mOsm/kg (285-295); Sodium 139 mmol/L (136-145); Total Bilirubin 0.9 mg/dL (0.15-1.2); Total Protein 6.7 g/dL (6.6-8.7)
[2019-07-26 05:20] LABS: NT Pro B Type Natriuretic Pept 462 pg/mL (0-125)
[2019-07-26] MEDS: SYMBICORT 1 EACH PO ×2 (07:38→20:47)
--- NOTE | 2019-07-26 08:02 | ECG_ITS ---
Measurements Intervals [place] Rate: 59 P: 60 MA: 196 QRS: 47 QRSD: 92 T: 51 QT: 480 QTc: 479 SINUS BRADYCARDIA WITH MARKED SINUS ARRHYTHMIA POSSIBLE LEFT ATRIAL ENLARGEMENT [-0.1mV P WAVE IN V1/V2] PROLONGED QT INTERVAL Compared to ECG 07/25/2019 18:40:38 Prolonged QT interval now present Sinus rhythm no longer present Incomplete right bundle-branch block no longer present Electronically Signed On 07-26-2019 14:50:51 CDT by Simran Peterson M.D. [id number]
[2019-07-26] MEDS: rivaroxaban 10 mg Tablet 20 MG PO (08:59)
[2019-07-26] MEDS: lisinopril 20 mg Tablet PO ×2 (08:59→17:55)
[2019-07-26] MEDS: FUROsemide 20 mg Tablet PO (08:59)
[2019-07-26] MEDS: aspirin 81 mg EC Tablet PO (08:59)
[2019-07-26] MEDS: citalopram 20 mg Tablet 10 MG PO (09:00)
--- NOTE | 2019-07-26 10:05 | PM.PN ---
Subjective Subjective: Interval history: Feels OK. Denies any chest pain or shortness of breath. Telemetry shows sinus rhythm with occasional PACs. He had a repeat EKG this morning which revealed a QTC of 480. Denies any other specific complaints. Medications: Reviewed: Yes Medication Review Details: Current Medications Aspirin (Aspirin Ec) 81 mg PO DAILY [facility] Last Admin: 07/26/19 08:59 Dose: 81 mg Documented by: Citalopram Hydrobromide (Celexa) 10 mg PO DAILY [facility] Last Admin: 07/26/19 09:00 Dose: 10 mg Documented by: Diltiazem HCl (Cardizem Sr (12hr)) 240 mg PO BID [facility] Last Admin: 07/26/19 08:58 Dose: 240 mg Documented by: Furosemide (Lasix) 20 mg PO DAILY@0800 [facility] Last Admin: 07/26/19 08:59 Dose: 20 mg Documented by: Sodium Chloride (Sodium Chloride 0.9%) 1,000 mls @ 30 mls/hr IV .Q24H ONE Stop: 07/26/19 15:06 Last Admin: 07/25/19 20:41 Dose: Not Given Documented by: Lisinopril (Prinivil) 20 mg PO BID [facility] Last Admin: 07/26/19 08:59 Dose: 20 mg Documented by: Nicotine Polacrilex (Nicorette) 2 mg BUCCAL Q2H PRN PRN Reason: NICOTINE CRAVINGS Last Admin: 07/25/19 17:46 Dose: 2 mg Documented by: Non-Formulary Medication Symbicort 160/4.5 1 each PO BID.RESPIRATORY [facility] Last Admin: 07/26/19 07:38 Dose: 1 each Documented by: Potassium Chloride (Klor-Con 10) 10 meq PO DAILY [facility] Last Admin: 07/26/19 08:59 Dose: 10 meq Documented by: Sotalol HCl (Betapace) 120 mg PO 0400,1600 [facility] Last Admin: 07/26/19 04:44 Dose: 120 mg Documented by: Vitals/I&O/Wt Last Vital Signs Temp 98.6 F 07/26/19 04:22 Pulse 60 07/26/19 09:00 Resp 18 07/26/19 09:00 BP 138/91 07/26/19 09:00 Pulse Ox 95 07/26/19 09:00 0307/26/19 07/26/19 22:59 06:59 14:59 Intake Total 140 / 140 Output Total 200 / 200 400 / 600 Balance -60 / -60 -400 / -460 Weight last 48 hrs Weight 233 lb Physical Exam Narrative: EXAM NARRATIVE: GENERAL: The patient is alert and oriented times three. Not in any acute distress. HEENT: No significant pallor, icterus or lymphadenopathy.Oral cavity: There are no mucous membrane lesions. NECK: Trachea appears to be central. No masses noted. No JVD or thyromegaly appreciated. RESPIRATORY: Chest is symmetrical. No intercostals muscle retraction or any accessory muscle activation. There is no chest wall tenderness. Breath sounds are heard bilaterally. No rales or rhonchi heard. No evidence of any consolidation. BREASTS: Deferred. HEART: The heart sounds are normal. No S3 or S4. Short systolic murmur in the left sternal border.. No pericardial rub ABDOMEN: No vessel pulsations or distention. No tenderness. No organomegaly appreciated. Bowel sounds are normally heard. : Deferred. RECTAL: Deferred. LYMPHATIC: No lymphadenopathy noted in the neck or groin. EXTREMITIES: No edema or cyanosis. No clubbing. Peripheral pulses are palpated in fairly good volume and amplitude MUSCULOSKELETAL: No acute joint deformities or swelling SKIN: There are no significant scars or skin rash noted. NEUROPSYCHIATRIC: The patient is alert and oriented x3. Appears to be in a good mood. No tremors or rigidity noted. Data : 07/27/19 04:11 07/27/19 04:11 EKG 1: My Interpretation: Sinus disha cardia with sinus arrhythmia. Qtc of 480. LAE. A&P Assessment and plan (1) Atrial fibrillation: May continue on the current medications. Because of the slightly prolonged QTC, we may closely monitor him on the telemetry. We will do a repeat EKG this evening. Based on the results, further management decisions will be made Status: Acute Qualifiers: Atrial fibrillation type: paroxysmal Qualified Code(s): I48.0 - Paroxysmal atrial fibrillation Code(s): I48.91 - Unspecified atrial fibrillation (2) CHF (congestive heart failure): HFpEF, Mildly decompensated in setting of atrial fibrillation with RVR. Hold off on any further diuretics at this time. Continue on the other current medications Status: Acute Qualifiers: Heart failure chronicity: chronic Heart failure type: diastolic Qualified Code(s): I50.32 - Chronic diastolic (congestive) heart failure Code(s): I50.9 - Heart failure, unspecified (3) Hypercholesteremia: Patient is currently on dietary modification. May continue the same. Status: Acute Code(s): E78.00 - Pure hypercholesterolemia, unspecified (4) Hypertension: Blood pressure is a stage II. I may discontinue the Lasix. Start him on chlorthalidone 25 mg p.o. daily Status: Acute Qualifiers: Hypertension type: essential hypertension Qualified Code(s): I10 - Essential (primary) hypertension Code(s): I10 - Essential (primary) hypertension (5) Obstructive sleep apnea: May continue on the CPAP. Status: Acute Code(s): G47.33 - Obstructive sleep apnea (adult) (pediatric) (6) COPD (chronic obstructive pulmonary disease): May continue the current treatment as per the primary. Status: Acute Qualifiers: COPD type: unspecified COPD Qualified Code(s): J44.9 - Chronic obstructive pulmonary disease, unspecified Code(s): J44.9 - Chronic obstructive pulmonary disease, unspecified Additional A&P Information Transaminitis: Enzymes are coming down DVT prohylaxis: on xarelto Full code After reviewing the above test results and also based on the patient clinical progress, further management decisions will be made Attestations Medical Necessity Statement*: Patient requires continued hospital stay for close monitoring the QTC and further management Coding Level of Care Code Acute X Ray Physician for Chg Fwd Diagnoses Atrial fibrillation I48.0 Atrial fibrillation type: paroxysmal CHF (congestive heart failure) I50.32 Heart failure chronicity: chronic Heart failure type: diastolic Hypercholesteremia E78.00 Hypertension I10 Hypertension type: essential hypertension Obstructive sleep apnea G47.33 COPD (chronic obstructive pulmonary disease) J44.9 COPD type: unspecified COPD
[2019-07-26] MEDS: nicotine 2 mg Gum BUCCAL (11:10)
--- NOTE | 2019-07-26 15:24 | PC.CHAP ---
Pastoral Care Encounter/Spiritual Assessment Type of Contact [] Declined outside sales consultant visit [] Patient/Family/Request visit [] Outpatient visit [] Follow-up visit [] Physician referral [] Code/Alert [] Routine visit [] Staff referral [] Actively dying [] Patient sleeping [] Family support [] [] Out of room [] Palliative care [] [] Receiving care in room [] Pre-surgical visit [] Trauma [] Long length of stay [] ICU visit [] Other: Relational/Emotional Strength [] Patient feels connected with others/family/visitors/staff [] Distress [] Loneliness/isolation [] Abandonment Spirituality of Patient [] Person of Karma [] Attends Mandaen of their Karma [] Believes in Prayer [] Reads Bible or Orthodoxy materials [] There are Spiritual issues to be addressed Auditor/Quality Interventions [] Prayer [] Active listening [] Non-anxious presence [] Spiritual/emotional support [] Crisis/trauma care [] Spiritual counseling [] Bereavement support [] Provided bereavement packet [] Provided Bible/devotional materials [] Provided toy/stuffed animal, coloring book to patient or family member [] Provided Communion [] Anointing/[place] [] Salvation [] Completed spiritual assessment [] Other: Impact on Illness or Injury [] Angry [] Fearful [] Anxious [] Often cries [] Exhaustion [] Unable to work [] Unable to attend rastafari [] Unable to walk/stand [] Unable to read [] Unable to drive [] Unable to eat/drink [] Unable to sleep [] Unable to be with family [] Patient intubated [] Other: Summary DISCHARGED Time spent with patient
--- NOTE | 2019-07-26 18:50 | ECG_ITS ---
Measurements Intervals [place] Rate: 55 P: 57 SD: 193 QRS: 46 QRSD: 99 T: 61 QT: 498 QTc: 479 SINUS BRADYCARDIA WITH SINUS ARRHYTHMIA POSSIBLE LEFT ATRIAL ENLARGEMENT [-0.1mV P WAVE IN V1/V2] POSSIBLE RIGHT VENTRICULAR CONDUCTION DELAY [RSR (QR) IN V1/V2] POSSIBLE INFERIOR MYOCARDIAL INFARCTION [30 ms Q WAVE IN II/aVF], OF INDETERMINATE AGE Compared to ECG 07/26/2019 09:57:30 Myocardial infarct finding now present Prolonged QT interval no longer present Electronically Signed On 07-27-2019 9:12:17 CDT by Marques Henry [id number]
[2019-07-27] VITALS (7 sets, daily range): BP systolic 122–145; BP diastolic 69–87; PULSE 49–73; RESP 13–18; TEMP 36–36.8; O2SAT 93–98
[2019-07-27] MEDS: sotalol 80 mg Tablet 120 MG PO (04:07)
[2019-07-27 05:12] LABS: Basophils % 0.7 %; Eosinophils # 0.3 10^3/uL (0.0-0.8); Eosinophils % 4.2 %; Hematocrit 45.8 % (42.0-52.0); Hemoglobin 15.6 g/dL (11.7-16.6); Lymphocytes # 1.7 10^3/uL (0.8-4.8); Lymphocytes % 28.8 %; Mean Corpuscular HGB Conc 34.1 g/dL (30.0-36.0); Mean Corpuscular Hemoglobin 33.3 pg (28.0-34.0); Mean Corpuscular Volume 97.9 fL (80-94); Mean Platelet Volume 10.4 fL (7.4-10.4); Monocytes # 0.6 10^3/uL (0.2-0.9); Monocytes % 10.7 %; Neutrophils # 3.3 10^3/uL (1.8-7.7); Neutrophils % 55.4 %; Nucleated Red Blood Cells % 0 %; Platelet Count 209 10^3/cmm (130-400); Red Blood Count 4.68 10^6/uL (4.1-5.3); Red Cell Distribution Width 12.1 % (12.1-15.1); White Blood Count 5.9 10^3/uL (4.0-10.0)
[2019-07-27 05:36] LABS: Alanine Aminotransferase 120 U/L (0-41); Albumin Level 3.9 g/dL (3.5-5.2); Alkaline Phosphatase 61 IU/L (40-130); Anion Gap 14.2 (5-19); Aspartate Amino Transferase 67 U/L (0-40); Blood Urea Nitrogen 10 mg/dL (6-20); Calcium 9.3 mg/dL (8.5-10.5); Carbon Dioxide 26 mmol/L (22-29); Chloride 101 mmol/L (98-107); Creatinine Clr Calc Pharmacy 174.0998; Globulin 2.6 g/dL (1.3-4.6); Glomerular Filtration Rate 140.4 mL/min (90-130); Glucose 135 mg/dL (65-115); Magnesium 2.1 mg/dL (1.7-2.3); Osmolality Calculated 282 mOsm/kg (285-295); Potassium 4.2 mmol/L (3.5-5.1); Sodium 137 mmol/L (136-145); Total Bilirubin 0.8 mg/dL (0.15-1.2); Total Protein 6.5 g/dL (6.6-8.7)
--- NOTE | 2019-07-27 07:00 | ECG_ITS ---
Measurements Intervals [place] Rate: 48 P: 78 [place]: 188 QRS: 78 QRSD: 90 T: 82 QT: 538 QTc: 484 SINUS BRADYCARDIA WITH MARKED SINUS ARRHYTHMIA POSSIBLE LEFT ATRIAL ENLARGEMENT [-0.1mV P WAVE IN V1/V2] PROLONGED QT INTERVAL Compared to ECG 07/26/2019 09:57:30 No significant changes Electronically Signed On 07-27-2019 9:12:27 CDT by Marques Henry [id number]
[2019-07-27] MEDS: FUROsemide 20 mg Tablet PO (08:05)
[2019-07-27] MEDS: rivaroxaban 10 mg Tablet 20 MG PO (08:05)
[2019-07-27] MEDS: citalopram 20 mg Tablet 10 MG PO (08:06)
[2019-07-27] MEDS: lisinopril 20 mg Tablet PO ×2 (08:06→18:35)
[2019-07-27] MEDS: aspirin 81 mg EC Tablet PO (08:06)
--- NOTE | 2019-07-27 09:55 | P.PN_ITS ---
Subjective Subjective: Interval history: Patient is feeling okay. No chest pain or palpitations. Telemetry shows sinus bradycardia/sinus rhythm. The QTC from today was 484. Medications: Reviewed: Yes Medication Review Details: Current Medications Aspirin (Aspirin Ec) 81 mg PO DAILY [facility] Last Admin: 07/27/19 08:06 Dose: 81 mg Documented by: Citalopram Hydrobromide (Celexa) 10 mg PO DAILY [facility] Last Admin: 07/27/19 08:06 Dose: 10 mg Documented by: Diltiazem HCl (Cardizem Sr (12hr)) 240 mg PO BID [facility] Last Admin: 07/27/19 08:07 Dose: 240 mg Documented by: Furosemide (Lasix) 20 mg PO DAILY@0800 [facility] Last Admin: 07/27/19 08:05 Dose: 20 mg Documented by: Lisinopril (Prinivil) 20 mg PO BID [facility] Last Admin: 07/27/19 08:06 Dose: 20 mg Documented by: Nicotine Polacrilex (Nicorette) 2 mg BUCCAL Q2H PRN PRN Reason: NICOTINE CRAVINGS Last Admin: 07/27/19 10:23 Dose: 2 mg Documented by: Non-Formulary Medication Symbicort 160/4.5 1 each PO BID.RESPIRATORY [facility] Last Admin: 07/26/19 20:47 Dose: 1 each Documented by: Potassium Chloride (Klor-Con 10) 10 meq PO DAILY [facility] Last Admin: 07/27/19 08:05 Dose: 10 meq Documented by: Sotalol HCl (Betapace) 120 mg PO 0400,1600 [facility] Last Admin: 07/27/19 04:07 Dose: 120 mg Documented by: Vitals/I&O/Wt Last Vital Signs Temp 98.3 F 07/27/19 07:13 Pulse 53 L 07/27/19 07:13 Resp 13 07/27/19 07:13 BP 144/78 07/27/19 07:13 Pulse Ox 93 07/27/19 07:13 07/26/19 07/27/19 07/27/19 22:59 06:59 14:59 Intake Total 600 / 840 360 / 360 Balance 600 / 840 360 / 360 Physical Exam Narrative: EXAM NARRATIVE: GENERAL: The patient is alert and oriented times three. Not in any acute distress. HEENT: No significant pallor, icterus or lymphadenopathy.Oral cavity: There are no mucous membrane lesions. NECK: Trachea appears to be central. No masses noted. No JVD or thyromegaly appreciated. RESPIRATORY: Chest is symmetrical. No intercostals muscle retraction or any accessory muscle activation. There is no chest wall tenderness. Breath sounds are heard bilaterally. No rales or rhonchi heard. No evidence of any consolidation. BREASTS: Deferred. HEART: The heart sounds are normal. No S3 or S4. Short systolic murmur in the left sternal border.. No pericardial rub ABDOMEN: No vessel pulsations or distention. No tenderness. No organomegaly appreciated. Bowel sounds are normally heard. : Deferred. RECTAL: Deferred. LYMPHATIC: No lymphadenopathy noted in the neck or groin. EXTREMITIES: No edema or cyanosis. No clubbing. Peripheral pulses are palpated in fairly good volume and amplitude MUSCULOSKELETAL: No acute joint deformities or swelling SKIN: There are no significant scars or skin rash noted. NEUROPSYCHIATRIC: The patient is alert and oriented x3. Appears to be in a good mood. No tremors or rigidity noted. Data : 07/27/19 04:11 07/27/19 04:11 A&P Assessment and plan (1) Atrial fibrillation: I may hold off on the Betapace now. Will do a repeat EKG this evening. Based on the QTC, the dose of the Betapace will be adjusted. In view of his intolerance to higher dose of Betapace, patient may benefit from catheter based options for arrhythmia. This was discussed with the patient. He seems to understand this. Status: Acute Qualifiers: Atrial fibrillation type: paroxysmal Qualified Code(s): I48.0 - Paroxysmal atrial fibrillation Code(s): I48.91 - Unspecified atrial fibrillation (2) CHF (congestive heart failure): Patient seems to be compensated. May continue on the current medications. Status: Acute Qualifiers: Heart failure type: diastolic Heart failure chronicity: chronic Qualified Code(s): I50.32 - Chronic diastolic (congestive) heart failure Code(s): I50.9 - Heart failure, unspecified (3) Hypercholesteremia: Patient is currently on dietary modification. May continue the same. Status: Acute Code(s): E78.00 - Pure hypercholesterolemia, unspecified (4) Hypertension: Blood pressure is a stage II. Continue the chlorthalidone Status: Acute Qualifiers: Hypertension type: essential hypertension Qualified Code(s): I10 - Esse ntial (primary) hypertension Code(s): I10 - Essential (primary) hypertension (5) Obstructive sleep apnea: May continue on the CPAP. Status: Acute Code(s): G47.33 - Obstructive sleep apnea (adult) (pediatric) (6) COPD (chronic obstructive pulmonary disease): May continue the current treatment as per the primary. Status: Acute Qualifiers: COPD type: unspecified COPD Qualified Code(s): J44.9 - Chronic obstructive pulmonary disease, unspecified Code(s): J44.9 - Chronic obstructive pulmonary disease, unspecified Additional A&P Information Transaminitis: Enzymes are more or less staying up. Etiology is unclear. DVT prohylaxis: on xarelto Full code After reviewing the above test results and also based on the patient clinical progress, further management decisions will be made Attestations Medical Necessity Statement*: Patient requires telemetry monitoring because of the prolonged QTC and high risk medication Coding Level of Care Code Acute Chemistry Quality Control Technician for Chg Fwd Diagnoses Atrial fibrillation I48.0 Atrial fibrillation type: paroxysmal CHF (congestive heart failure) I50.32 Heart failure type: diastolic Heart failure chronicity: chronic Hypercholesteremia E78.00 Hypertension I10 Hypertension type: essential hypertension Obstructive sleep apnea G47.33 COPD (chronic obstructive pulmonary disease) J44.9 COPD type: unspecified COPD
[2019-07-27] MEDS: nicotine 2 mg Gum BUCCAL ×2 (10:23→14:22)
--- NOTE | 2019-07-27 11:42 | PC.NURSE ---
Ambuating and up in room Attached tele-nolvia so pt can get up and move around. Sinus Bradycardia noted. HR- upper 45 to upper 50s. Pt denies any dizziness and palpitations. Denies any SOB or pains. Dr. Peterson in room this morning to discuss pt's EKG result. Pt understands that he needs to be monitored for medication changes. Also discuss to pt of an Ablation in the near future. Pt stated he would like to have an EP in [place] since it is hard to get in for an appointment at [place].
[2019-07-27] MEDS: sotalol 80 mg Tablet PO (16:56)
--- NOTE | 2019-07-27 17:00 | ECG_ITS ---
Measurements Intervals [place] Rate: 50 P: 57 [place]: 193 QRS: 45 QRSD: 80 T: 63 QT: 469 QTc: 430 SINUS BRADYCARDIA POSSIBLE LEFT ATRIAL ENLARGEMENT [-0.1mV P WAVE IN V1/V2] MODERATE ST DEPRESSION [0.05+ mV ST DEPRESSION] WARNING: DATA QUALITY MAY AFFECT INTERPRETATION Compared to ECG 07/27/2019 06:25:37 ST (T wave) deviation now present Sinus arrhythmia no longer present Prolonged QT interval no longer present Electronically Signed On 07-27-2019 20:36:26 CDT by Simran Peterson M.D. [id number]
[2019-07-27] MEDS: acetaminophen 325 mg Tablet 650 MG PO (18:36)
--- NOTE | 2019-07-27 19:00 | ECG_ITS ---
Measurements Intervals [place] Rate: 53 P: 75 TN: 192 QRS: 49 QRSD: 98 T: 57 QT: 509 QTc: 478 SINUS BRADYCARDIA WITH MARKED SINUS ARRHYTHMIA POSSIBLE LEFT ATRIAL ENLARGEMENT [-0.1mV P WAVE IN V1/V2] POSSIBLE INFERIOR MYOCARDIAL INFARCTION [30 ms Q WAVE IN II/aVF], OF INDETERMINATE AGE WARNING: DATA QUALITY MAY AFFECT INTERPRETATION Compared to ECG 07/27/2019 06:25:37 Myocardial infarct finding now present Prolonged QT interval no longer present Electronically Signed On 07-27-2019 20:36:43 CDT by Simran Peterson M.D. [id number]
--- NOTE | 2019-07-27 23:25 | PC.NURSE ---
Patients ekg from 19:45 after his last dose of 80 mg sotolol was QT 509, QTC 491. Called Dr. Peterson to verify the numbers before patients 04:00 dose of 120 mg sotolol. he said to hold the 04:00 dose, do an ekg at 6 and theyll go from there.
[2019-07-28 00:32] VITALS: BP 139/84; PULSE 53; RESP 16; TEMP 35.7; O2SAT 95
[2019-07-28 04:04] LABS: Basophils % 0.5 %; Eosinophils # 0.3 10^3/uL (0.0-0.8); Eosinophils % 4.8 %; Hemoglobin 15.7 g/dL (11.7-16.6); Lymphocytes # 1.7 10^3/uL (0.8-4.8); Lymphocytes % 29.3 %; Mean Corpuscular HGB Conc 34.1 g/dL (30.0-36.0); Mean Corpuscular Hemoglobin 33.2 pg (28.0-34.0); Mean Corpuscular Volume 97.3 fL (80-94); Mean Platelet Volume 10.4 fL (7.4-10.4); Monocytes # 0.7 10^3/uL (0.2-0.9); Monocytes % 11.1 %; Neutrophils # 3.2 10^3/uL (1.8-7.7); Neutrophils % 54.1 %; Nucleated Red Blood Cells % 0 %; Platelet Count 193 10^3/cmm (130-400); Red Blood Count 4.73 10^6/uL (4.1-5.3); Red Cell Distribution Width 11.9 % (12.1-15.1); White Blood Count 5.9 10^3/uL (4.0-10.0)
[2019-07-28 04:24] LABS: Alanine Aminotransferase 161 U/L (0-41); Albumin Level 3.9 g/dL (3.5-5.2); Alkaline Phosphatase 57 IU/L (40-130); Anion Gap 14.2 (5-19); Aspartate Amino Transferase 94 U/L (0-40); Blood Urea Nitrogen 11 mg/dL (6-20); Calcium 9.3 mg/dL (8.5-10.5); Carbon Dioxide 26 mmol/L (22-29); Chloride 101 mmol/L (98-107); Creatinine Clr Calc Pharmacy 174.0998; Globulin 2.6 g/dL (1.3-4.6); Glomerular Filtration Rate 140.4 mL/min (90-130); Glucose 134 mg/dL (65-115); Magnesium 2.5 mg/dL (1.7-2.3); Osmolality Calculated 282 mOsm/kg (285-295); Potassium 4.2 mmol/L (3.5-5.1); Sodium 137 mmol/L (136-145); Total Bilirubin 0.7 mg/dL (0.15-1.2); Total Protein 6.5 g/dL (6.6-8.7)
[2019-07-28 04:47] VITALS: BP 121/77; PULSE 51; RESP 18; TEMP 36.4; O2SAT 96
--- NOTE | 2019-07-28 06:00 | ECG_ITS ---
Measurements Intervals [place] Rate: 53 P: 67 [place]: 190 QRS: 53 QRSD: 90 T: 63 QT: 481 QTc: 453 SINUS BRADYCARDIA WITH SINUS ARRHYTHMIA POSSIBLE RIGHT VENTRICULAR CONDUCTION DELAY [RSR (QR) IN V1/V2] PROLONGED QT INTERVAL Compared to ECG 07/27/2019 19:45:39 Prolonged QT interval now present Myocardial infarct finding no longer present Electronically Signed On 07-28-2019 19:22:25 CDT by Simran Peterson M.D. [id number]
[2019-07-28 07:28] VITALS: BP 143/94; PULSE 52; RESP 18; TEMP 37.1; O2SAT 95
[2019-07-28] MEDS: SYMBICORT 1 EACH PO (07:54)
[2019-07-28] MEDS: nicotine 2 mg Gum BUCCAL (08:25)
[2019-07-28] MEDS: sotalol 80 mg Tablet PO (08:25)
[2019-07-28] MEDS: aspirin 81 mg EC Tablet PO (08:56)
[2019-07-28] MEDS: citalopram 20 mg Tablet 10 MG PO (08:57)
[2019-07-28] MEDS: lisinopril 20 mg Tablet PO (08:57)
[2019-07-28] MEDS: chlorthalidone 25 mg Tablet PO (08:57)
[2019-07-28] MEDS: rivaroxaban 10 mg Tablet 20 MG PO (08:58)
--- NOTE | 2019-07-28 11:01 | ECG_ITS ---
Measurements Intervals [place] Rate: 47 P: 57 RI: 190 QRS: 47 QRSD: 92 T: 59 QT: 486 QTc: 433 SINUS BRADYCARDIA POSSIBLE LEFT ATRIAL ENLARGEMENT [-0.1mV P WAVE IN V1/V2] POSSIBLE RIGHT VENTRICULAR CONDUCTION DELAY [RSR (QR) IN V1/V2] Compared to ECG 07/27/2019 19:45:39 Sinus arrhythmia no longer present Myocardial infarct finding no longer present Electronically Signed On 07-28-2019 11:41:53 CDT by Amber Bernabe M.D. [id number]
--- NOTE | 2019-07-28 11:28 | P.DS_ITS ---
Discharge Providers Date of Admission: 07/25/19 10:28 Date of Discharge: July 28, 2019 Attending Provider at Admission: Amber Bernabe MD Attending Provider at Discharge: Amber Bernabe MD Primary Care Provider: Ronal Mckenzie DO Diagnoses at Discharge Discharge Diagnosis (1) Atrial fibrillation: Status: Acute Problem details: Paroxysmal atrial fibrillation -s/p NICOLASA/CV, currently on sotalol and and Xarelto. -He received sotalol 120 mg BID on Sunday and Sunday alongwith Cardizem and then yesterday because of concern for bradycardia and QT prolongation sotalol 80 mg last night and this morning. -EKG today with sinus bradycardia at 47 bpm and QT/QTc 486/433 msec. -I will discharge him on sotalol 80 mg am and 120 mg PM. Atrial fibrillation ablation discussed with the patient. I will refer him outpatient for the same. -Hold off cardizem -EKG and follow up in 1 week; advised to keep a track of BP and HR for next 2 weeks. Qualifiers: Atrial fibrillation type: paroxysmal Qualified Code(s): I48.0 - Paroxysmal atrial fibrillation (2) CHF (congestive heart failure): Status: Acute Problem details: Decompensated in setting of atrial fibrillation with RVR. -Preserved LV function. -continue chlorthalidone and low dose potassium. Qualifiers: Heart failure chronicity: chronic Heart failure type: diastolic Qualified Code(s): I50.32 - Chronic diastolic (congestive) heart failure (3) Hypercholesteremia: Status: Acute (4) Hypertension: Status: Acute Problem details: BP slightly elevated. start on low dose amlodipine 2.5 mg on discharge. -BP/HR log x 2 weeks. Qualifiers: Hypertension type: essential hypertension Qualified Code(s): I10 - Essential (primary) hypertension (5) Obstructive sleep apnea: Status: Acute Problem details: complaint with CPAP. (6) COPD (chronic obstructive pulmonary disease): Status: Acute Problem details: continue home inhalers. Qualifiers: COPD type: unspecified COPD Qualified Code(s): J44.9 - Chronic obstructive pulmonary disease, unspecified Other Information Additional DC diagnoses/information: Transaminitis: Unclear etiology, concern for fatty liver ; follow up with PCP. Obesity: Advised on losing weight. Reason for Visit Reason for Visit: Reason For Visit: CP Hospital Course Hospital Course: Dung Gomez is a 54 year old man with h/o paroxysmal atrial fibrillation s/p CV x 2 in 04/2016 on Sotalol,metoprolol, cardizem and Xarelto. He also has h/o smoking, preserved LV function with LVEF of 60% in 02/2016, mild MR, Mild LA enlargement. He was diagnosed with sleep apnea and has been using CPAP with good results. He was evaluated by EP at [facility] and then sleep study was done. No f/o ablation. He was in the ER on 07/07/19 for atrial fib with RVR and converted to NSR after iv cardizem. I saw him after that in office and after discussion decision was made to take additional sotalol 40 mg as needed if he goes in a. fib again. He was doing well until last night when he noticed his HR fluctuating but did not think much of it and went to bed. He woke up at 4:30 am this morning and took his medication and while driving to work he felt palpitation with heart racing burning chest discomfort with it. He noticed his HR in 130's on fitbit. He took extra 1/2 tab sotalol and waited an hour and then came to ER for further evaluation. EKG showed atrial fibrillation with RVR and he received cardizem 15 mg IV followed by 10 mg IV but he did not convert. He underwent NICOLASA guided cardioversion with jew of NSR. He has remained in NSR/SB since then. He received sotalol 120 mg BID on Sunday and Sunday alongwith Cardizem and then yesterday because of concern for bradycardia and QT prolongation sotalol 80 mg last night and this morning. Longest QT/QTc of 538/484 msec with sinus bradycardia at 48 bpm. EKG today with sinus bradycardia at 47 bpm and QT/QTc 486/433 msec. Physical Exam Const: COMMON NORMALS: no apparent distress, average body habitus, oriented x3, alert and well nourished GENERAL APPEARANCE: cooperative, comfortable, well kempt and well developed ORIENTATION/CONSCIOUSNESS: Yes oriented to person, Yes oriented to place and Yes oriented to time HENMT: COMMON NORMALS: normocephalic, head/scalp atraumatic, hearing grossly normal bilaterally, external ears normal, external nose normal, moist oral mucous membranes and oropharynx normal HEAD & SCALP: normocephalic and atraumatic FACE & SINUS: face symmetric NOSE: external nose normal EXTERNAL EAR: Yes external ears normal MOUTH: oral and palatal mucosa normal Eye: COMMON NORMALS: PERRL, EOMs intact bilaterally and conjunctivae normal ALIGNMENT: Yes alignment normal CONJUNCTIVA: Yes conjunctivae normal SCLERA: sclerae normal PUPIL: Yes PERRL Neck/C-Spine: COMMON NORMALS: no lymphadenopathy, supple, no JVD and thyroid normal; negative for no carotid bruits THYROID: thyroid normal Resp: COMMON NORMALS: normal respiratory effort, no use of accessory muscles, clear to auscultation bilaterally and percussion normal AUSCULTATION: clear to auscultation bilaterally, no crackles, no rales, no rhonchi and no wheezes PERCUSSION: percussion normal Cardio: COMMON NORMALS: no JVD, regular rate, regular rhythm and peripheral pulses 2+ throughout; negative for no gallops and negative for no clicks JUGULAR VENOUS DISTENTION: no JVD PALPATION: normal PMI, no heave and no thrill RATE: regular rate RHYTHM: regular rhythm HEART SOUNDS: no murmurs BRUITS: no carotid bruits PERIPHERAL PULSES: pulses 2+ throughout GI: COMMON NORMALS: normal to inspection, nondistended, normoactive bowel sounds, soft to palpation and non-tender PALPATION: Yes soft PERCUSSION: tympanic to percussion RECTAL EXAM: Yes deferred Neuro: COMMON NORMALS: oriented x3 and no focal motor deficits SENSORIUM/ORIENTATION: Yes alert, Yes oriented to person, Yes oriented to place and Yes oriented to time CRANIAL NERVES: Yes CN normal except as noted Psych: COMMON NORMALS: thought process normal APPEARANCE: Yes well kempt MOOD & AFFECT: Yes euthymic mood THOUGHT PROCESS: normal thought process THOUGHT CONTENT: Yes normal thought content ATTENTION/CONCENTRATION: Yes attention grossly intact MEMORY/COGNITION: Yes memory grossly intact INSIGHT: insight good JUDGEMENT: judgment good Discharge Data Data Completed and Pending: Completed Studies During Hospitalization Category Date Time Status XR chest 1V ivania ble [id number] Urgent Exams 07/25/19 08:57 Completed Pending at discharge Category Date Time Status CV echo transesop hageal [id number] Routi ne Ultrasound 07/25/19 12:29 Taken Labs from last 24 hours 07/28/19 07/28/19 03:37 03:37 WBC 5.9 RBC 4.73 Hgb 15.7 Hct 46.0 MCV 97.3 H MCH 33.2 MCHC 34.1 RDW 11.9 L Plt Count 193 MPV 10.4 Neut % (Auto) 54.1 Lymph % (Auto) 29.3 [place] % (Auto) 11.1 Eos % (Auto) 4.8 Baso % (Auto) 0.5 Neut # (Auto) 3.2 Lymph # (Auto) 1.7 [place] # (Auto) 0.7 Eos # (Auto) 0.3 Baso # (Auto) 0.0 Nucleated RBC % (a uto) 0 Nucleated RBCs # 0.0 Sodium 137 Potassium 4.2 Chloride 101 Carbon Dioxide 26 Anion Gap 14.2 BUN 11 Creatinine 0.6 L GFR Calculation 140.4 H Glucose 134 H Calculated Osmolal ity 282 L Calcium 9.3 Magnesium 2.5 H Total Bilirubin 0.7 AST 94 H ALT 161 H Alkaline Phosphata se 57 Total Protein 6.5 L Albumin 3.9 Globulin 2.6 Vitals: Last Vital Signs Temp 98.7 F 07/28/19 07:28 Pulse 52 L 07/28/19 07:28 Resp 18 07/28/19 07:28 BP 143/94 07/28/19 07:28 Pulse Ox 95 07/28/19 07:28 Discharge Plan Discharge Patient Disposition: Home, Self-Care Condition: Stable Prescriptions: New chlorthalidone 25 mg Tablet 25 mg PO DAILY 30 Days Qty: 3 RF: 0 potassium chloride 10 mEq Tablet Extended Release 10 meq PO DAILY 30 Days Qty: 3 RF: 0 sotalol 80 mg tablet See Rx Instructions .ROUTE .COMPLEX Qty: 90 RF: 3 amlodipine 2.5 mg tablet 2.5 mg PO DAILY Qty: 30 RF: 3 Continued aspirin [Aspir-81] 81 mg tablet,delayed release (DR/EC) 81 mg PO DAILY RF: 0 lisinopril 20 mg tablet 20 mg PO BID Qty: 60 RF: 3 Xarelto 20 mg tablet 20 mg PO DAILY Qty: 90 RF: 3 multivitamin [Multiple Vitamins] Tablet 1 tab PO DAILY RF: 0 citalopram 10 mg tablet 10 mg PO DAILY RF: 0 Symbicort 160-4.5 mcg/actuation HFA aerosol inhaler 2 puff INHALATION BID RF: 0 apple cider vinegar 1 tab PO DAILY RF: 0 Discontinued sotalol 80 mg tablet 80 mg PO BID Qty: 60 RF: 5 metoprolol tartrate 50 mg tablet 50 mg PO BID Qty: 60 RF: 5 sildenafil (pulm.hypertension) 20 mg tablet See Rx Instructions .ROUTE .COMPLEX RF: 0 diltiazem HCl 240 mg capsule,extended release 24 hr 240 mg PO BID RF: 0 Discharge Orders: Discharge Order (Routine); Ordered 07/28/19 Ordered By: Amber Bernabe Other Ambulatory Orders: Comprehensive Metabolic Panel (Routine) Timeframe: 1 Week Facility: [facility] - Location: Lab - Main Lab Ordered By: Amber Bernabe ECG nonstress test (Routine) Timeframe: 1 Week Facility: [facility] - Location: Respiratory Therapy Ordered By: Amber Bernabe Referrals: Amber Bernabe MD [Physician] - 1 week (You have an follow-up with Dr. Bernabe on July 30 at 2:30p.m. During this appointment you will A CMP blood draw and 12 EKG. If you have any questions, please call ) Ronal Mckenzie DO [Primary Care Provider] - 6 Weeks (You have an follow- up with Dr. Mckenzie on August 03 at 2:15p.m. If, you have any questions or need to reschedule. Please, call ) Discharge Diet: Cardiac and Low Cholesterol Discharge Activity: Increase activity as tolerated and Cpap/Bipap as instructed Patient Instructions: Potassium Chloride (By mouth), Chlorthalidone (By mouth), Amlodipine (By mouth), Sotalol (By mouth), Heart Failure (DC), Atrial Fibrillation (DC), Cardioversion (DC), Sleep Apnea Syndrome (DC), Hypertension (DC), CHF Stoplight, COPD Stoplight Activity Restrictions/Additional Instructions: * Check blood pressure and heart rate twice a day. * Take sotalol 80 mg in morning and 120 mg in evening. * Start taking amlodipine 2.5 mg 07/29/19. * EKG and labs in 1 week with follow up. Discharge Date/Time: 07/28/19 13:00 Discharge Attestations Time Spent in Discharge Care*: greater than 30 min Specific Discharge Activities: Specific discharge activities: educating patient, documenting/other paperwork and evaluating patient/reviewing data Time Spent in Smoking Cessation: Time spent discussing smoking cessation with patient: 3 to 10 minutes Details of Smoking Cessation Education: Patient was advised on ill effects of smoking from cardiac stand point and educated on importance of quitting smoking. He has been using nicotine gum for the same. Smoking cessation classes offered as an outpatient. Status at Discharge: Cognitive status at discharge: cognitively intact , Behavioral status at discharge: cooperative , Functional status at discharge: independent ambulation Overall status at discharge: patient is back to baseline Quality Metrics Clinical Quality Measures During this hospital stay, did patient experience: None Coding Level of Care Code Acute Assessment Nurse Practitioner for [facility] Fwd Exam Comprehensive Diagnoses Atrial fibrillation I48.0 Atrial fibrillation type: paroxysmal CHF (congestive heart failure) I50.32 Heart failure chronicity: chronic Heart failure type: diastolic Hypercholesteremia E78.00 Hypertension I10 Hypertension type: essential hypertension Obstructive sleep apnea G47.33 COPD (chronic obstructive pulmonary disease) J44.9 COPD type: unspecified COPD
[2019-07-28 12:31] VITALS: BP 143/94; PULSE 52; RESP 18; TEMP 37.1; O2SAT 95
== END 2019-07-28 13:00 | disposition home or self-care (01) | DRG 309 ==
LOC: ER 11:17 → CSU 11:18
PROVIDERS: Internal Medicine Cardiovascular Disease; Admitting Provider Family Medicine; Emergency Provider Emergency Medicine; Family Provider Internal Medicine; PCP Internal Medicine; Visit Provider Family Medicine
PROC: (CPT 93312; principal; 2019-07-25 17:00)
DX: I48.0 Paroxysmal atrial fibrillation (principal); I50.32 Chronic diastolic (congestive) heart failure; I11.0 Hypertensive heart disease with heart failure; E78.00 Pure hypercholesterolemia, unspecified; G47.33 Obstructive sleep apnea (adult) (pediatric); J44.9 Chronic obstructive pulmonary disease, unspecified; F17.210 Nicotine dependence, cigarettes, uncomplicated; I08.1 Rheumatic disorders of both mitral and tricuspid valves; E78.5 Hyperlipidemia, unspecified; Z79.811 Long term (current) use of aromatase inhibitors; Z79.82 Long term (current) use of aspirin
CPT/HCPCS: 12345; 36415; 71045; 80053; 83735; 83880; 84484; 85025; 93005; 93010; 93312; 93320; 93325; 94640; 96374; 96375; 99282; J1940; J3490; J7030

== ENCOUNTER → 2019-07-31 15:08 | Outpatient (BNVA) | payer OTHER, SELFPAY | PROVIDERS: Family Provider Internal Medicine; PCP Internal Medicine; Visit Provider Internal Medicine Cardiovascular Disease | DX: I48.0 Paroxysmal atrial fibrillation (principal); I11.0 Hypertensive heart disease with heart failure; I50.32 Chronic diastolic (congestive) heart failure; I34.0 Nonrheumatic mitral (valve) insufficiency | CPT/HCPCS: 80053 ==

== ENCOUNTER → 2019-08-11 10:53 | Day surgery (SDC) | payer OTHER, SELFPAY ==
--- NOTE | 2019-08-11 11:09 | ECG_ITS ---
Measurements Intervals [place] Rate: 72 P: 57 DE: 188 QRS: 46 QRSD: 89 T: 44 QT: 417 QTc: 456 SINUS RHYTHM POSSIBLE LEFT ATRIAL ENLARGEMENT [-0.1mV P WAVE IN V1/V2] Compared to ECG 07/28/2019 11:10:36 Sinus bradycardia no longer present Electronically Signed On 08-11-2019 18:35:17 CDT by Aiden Henry M.D. [id number]
--- NOTE | 2019-08-11 11:24 | SUR.PREOP ---
12 LEAD/ MD DISCUSSION 12 LEAD OBTAINED PRIOR TO ADMIT PER MD REQUEST. EKG'S SHOWED NSR. DR THOMAS CALLED. STATES SHE WILL BE IN TO DISCUSS THE FINDINGS WITH THE PATIENT. PREP ON HOLD.
--- NOTE | 2019-08-11 11:48 | PC.NURSE ---
Pt discharged Pt in SR after EKG done. Dr Bernabe here and states to cancel cardioversion. Pt had no IV or prep done. Work release given and pt discharged home. Walked to front entrance.
== END | disposition home or self-care (01) ==
PROVIDERS: Family Provider Internal Medicine; PCP Internal Medicine; Visit Provider Internal Medicine Cardiovascular Disease
DX: Z01.810 Encounter for preprocedural cardiovascular examination (principal)
CPT/HCPCS: 93005; J7030

== ENCOUNTER 2020-07-05 15:55 | Outpatient (CLI) | payer OTHER, SELFPAY ==
--- NOTE | 2020-07-05 16:04 | CT_ITS ---
WS: [id number] CT CHEST TECHNIQUE: Noncontrast CT of the chest with coronal and sagittal reformatted images. CLINICAL INFORMATION: PULMONARY NODULE COMPARISON: Outside images not currently available. DLP: 1163.[address] scans at [facility] use at least one of these dose optimization techniques: automat ed exposure control; mA and/or kV adjustment per patient size (includes targeted exams where dose is matched to clinical indication); or iterative reconstruction. FINDINGS: Mild chronic emphysematous changes. No acute pulmonary infiltrates. No consolidation or pleural fluid . Lungs are well aerated. Fibrotic bilobed opacity left lower lobe measuring 14 mm. Adjacent smaller opacity measuring 8 mm Sma ll amount of pleural thickening along the adjacent fissure. Fibrosis right middle lobe. Normal calibe r thoracic aorta. Mild aortic calcification. Coronary calcification. No axillary lymphadenopathy. No mediastinal or hilar lymphadenopathy. Adrenal glands are normal. Splenic granulomas. Normal GE junction. Disc space narrowing throughout th e thoracic spine. CT/CT chest wo con [id number] IMPRESSION: 1. Mild chronic emphysematous changes. No acute pulmonary infiltrates. 2. No mediastinal or hilar lymphadenopathy. 3. Bilobed fibrotic opacity left lower lobe measuring approximately 14 mm with smaller adjacent opacity measuring 8 mm. Recommend 6 month follow-up. 4. No other suspicious pulmonary abnormalities. 5. Vascular calcification including coronary.
== END 2020-07-05 15:56 | disposition home or self-care (01) ==
PROVIDERS: PCP Internal Medicine; Visit Provider Internal Medicine
DX: R91.1 Solitary pulmonary nodule (principal); I25.10 Atherosclerotic heart disease of native coronary artery without angina pectoris
CPT/HCPCS: 71250

== ENCOUNTER 2020-12-27 09:05 | Emergency (ER) | payer OTHER, SELFPAY ==
[2020-12-27 09:10] VITALS: BP 146/91; PULSE 101; RESP 18; TEMP 36.3; O2SAT 95; BMI 33.5
--- NOTE | 2020-12-27 09:19 | XR_ITS ---
WS: [id number] Exam: XR chest 1V portable [id number] Date/Time of Exam: 12/27/2020 9:31 AM Reason For Exam: chest pain Comparison 07/25/2019. The lungs are clear and hyperinflated. Cardiomediastinal structures are unremarkable for technique. N o pleural effusions. Monitoring leads superimpose the chest. XR/XR chest 1V portable [id number] IMPRESSION: 1. Pulmonary hyperinflation which might indicate COPD. 2. No acute process noted.
--- NOTE | 2020-12-27 09:20 | ECG_ITS ---
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 Measurements Intervals [place] Rate: 96 P: 91 [place]: 182 QRS: 47 QRSD: 96 T: 53 QT: 370 QTc: 469 Interpretive Statements SINUS RHYTHM WITH OCCASIONAL SUPRAVENTRICULAR PREMATURE COMPLEXES INCOMPLETE RIGHT BUNDLE BRANCH BLOCK [90+ ms QRS DURATION, TERMINAL R IN V1/V2, 40+ ms S IN I/aVL/V4/V5/V6] PROBABLE INFERIOR MYOCARDIAL INFARCTION , PROBABLY OLD [35 ms Q WAVE IN II/aVF] Compared to ECG 08/11/2019 11:16:24 Incomplete right bundle-branch block now present Myocardial infarct finding now present Electronically Signed On 12-27-2020 13:04:43 CDT by Amber Bernabe M.D. [id number]
[2020-12-27 09:28] VITALS: BP 155/101; PULSE 96; O2SAT 96
[2020-12-27 09:36] LABS: Basophils # 0.1 10^3/uL (0.0-0.1); Basophils % 1.5 %; Eosinophils # 0.5 10^3/uL (0.0-0.8); Eosinophils % 8.4 %; Hematocrit 47.8 % (42.0-52.0); Hemoglobin 16.8 g/dL (11.7-16.6); Lymphocytes # 1.4 10^3/uL (0.8-4.8); Lymphocytes % 22.2 %; Mean Corpuscular HGB Conc 35.1 g/dL (30.0-36.0); Mean Corpuscular Hemoglobin 33.5 pg (28.0-34.0); Mean Corpuscular Volume 95.2 fl (80-94); Mean Platelet Volume 10.2 fL (7.4-10.4); Monocytes # 0.7 10^3/uL (0.2-0.9); Neutrophils # 3.45 10^3/uL (1.8-7.7); Neutrophils % 56.7 %; Nucleated Red Blood Cells % 0 %; Platelet Count 236 10^3/cmm (130-400); Red Blood Count 5.02 10^6/uL (4.1-5.3); White Blood Count 6.1 10^3/uL (4.0-10.0)
--- NOTE | 2020-12-27 09:47 | ED_ITS ---
HPI - Chest Pain General: Chief Complaint: Chest Pain Stated Complaint: CHEST PAIN Time Seen by Provider: 12/27/20 09:19 History of Present Illness: HPI narrative: 55-year-old male presents emergency room complaining of chest pain that began while he was at work. Patient felt like it was heartburn took Rolaids with no relief. He has a history of atrial fibrillation he had an ablation about a year ago that seem to work well he was taken off his anticoagulants and rate control medications he is still on an antihypertensive. He takes lisinopril and amlodipine. MD complaint: chest pain Onset (ago): minute(s) Timing of current episode: episodic Prior episodes: Yes Onset: during rest Pain location: left chest Pain radiation: back (Briefly radiated to the back but that is resolved) Severity: mild Quality: heaviness Relieving factors: rest and other (Reclining position improves symptoms) Exacerbating factors: nothing Associated symptoms: Deny abdominal pain, diaphoresis, dyspnea, fever(s), leg edema, nausea, palpitations, sense of impending doom, syncope or vomiting Treatment prior to arrival: none Review of Systems Const: Denies: fever(s) or diaphoresis ENMT: Denies: throat pain, ear or mastoid pain, nasal discharge or nasal congestion Card: Denies: palpitations or syncope Resp: Denies: dyspnea GI: Denies: abdominal pain, nausea or vomiting : Denies: flank pain, dysuria, urinary frequency or urinary urgency Skin/Breast: Denies: rash or pruritus PFSH ED PFSH: Medical History (Updated 12/27/20 @ 12:31 by Germain Downey DO) Atrial fibrillation Paroxysmal atrial fibrillation -s/p NICOLASA/CV, currently on sotalol and and Xarelto. -He received sotalol 120 mg BID on Sunday and Sunday alongwith Cardizem and then yesterday because of concern for bradycardia and QT prolongation sotalol 80 mg last night and this morning. -EKG today with sinus bradycardia at 47 bpm and QT/QTc 486/433 msec. -I will discharge him on sotalol 80 mg am and 120 mg PM. Atrial fibrillation ablation discussed with the patient. I will refer him outpatient for the same. -Hold off cardizem -EKG and follow up in 1 week; advised to keep a track of BP and HR for next 2 weeks. COPD (chronic obstructive pulmonary disease) continue home inhalers. Hypercholesteremia Hypertension BP slightly elevated. start on low dose amlodipine 2.5 mg on discharge. -BP/HR log x 2 weeks. Obstructive sleep apnea complaint with CPAP. Family History Other Cancer Hypertension Social History Smoking and tobacco status: current every day smoker Alcohol intake: current Alcohol intake frequency: holidays/special occasions only Physical Exam Const: COMMON NORMALS: no acute distress GENERAL APPEARANCE: cooperative a nd comfortable ORIENTATION/CONSCIOUSNESS: Yes awake, Yes oriented to person, Yes oriented to place and Yes oriented to time HENMT: COMMON NORMALS: normocephalic, atraumatic and hearing grossly normal bilaterally HEAD & SCALP: normocephalic and atraumatic Neck/C-Spine: COMMON NORMALS: no JVD Resp: COMMON NORMALS: normal respiratory effort, No retractions, No use of accessory muscles and clear to auscultation bilaterally AUSCULTATION: clear to auscultation bilaterally Cardio: COMMON NORMALS: no JVD, regular rate, regular rhythm and No murmurs present (Cardio) RATE: regular rate RHYTHM: regular rhythm GI: COMMON NORMALS: Soft to palpation and No hepatosplenomegaly present AUSCULTATION: Yes normoactive bowel sounds PALPATION: Yes Soft to palpation, No Tenderness to palpation present (GI), No Guarding due to palpation present (GI) and Yes No hepatosplenomegaly present Extremity: COMMON NORMALS: normal to inspection, capillary refill normal, no clubbing, cyanosis or edema, no calf tenderness and no pedal edema Neuro: SENSORIUM/ORIENTATION: Yes oriented to person, Yes oriented to place and Yes oriented to time Skin: COMMON NORMALS: no rashes or lesions noted GENERAL SKIN EXAM: no rashes or lesions noted Course Vital Signs: Vital signs: Vital Signs Temperature 97.3 F L 12/27/20 09:10 Pulse Rate 85 12/27/20 12:41 Respiratory Rate 14 12/27/20 12:41 Blood Pressure 144/94 12/27/20 12:41 Pulse Oximetry 95 12/27/20 12:41 MDM - Chest Pain MDM Narrative: Medical decision making narrative: Reviewed EKGs troponins and laboratory tests with the patient. Think we can discharge him home he is completely asymptomatic at this time he had a previous ablation he may be having some breakthrough to maybe another accessory pathway present. We will go ahead and discharge him home without any medication changes and set him up for a Holter monitor follow-up with cardiology if has any recurrence or problems return immediately. Lab Data: Labs: Lab Results 12/27/20 12/27/20 12/27/20 Range/Units 09:24 09:24 09:24 WBC 6.1 (4.0-10.0) 10^3/ uL RBC 5.02 (4.1-5.3) 10^6/u L Hgb 16.8 H (11.7-16.6) g/dL Hct 47.8 (42.0-52.0) % MCV 95.2 H (80-94) fl MCH 33.5 (28.0-34.0) pg MCHC 35.1 (30.0-36.0) g/dL RDW 12.0 L (12.1-15.1) % Plt Count 236 (130-400) 10^3/c mm MPV 10.2 (7.4-10.4) fL Neut % (Auto) 56.7 % Lymph % (Auto) 22.2 % [place] % (Auto) 11.0 % Eos % (Auto) 8.4 % Baso % (Auto) 1.5 % Neut # (Auto) 3.45 (1.8-7.7) 10^3/u L Lymph # (Auto) 1.4 (0.8-4.8) 10^3/u L [place] # (Auto) 0.7 (0.2-0.9) 10^3/u L Eos # (Auto) 0.5 (0.0-0.8) 10^3/u L Baso # (Auto) 0.1 (0.0-0.1) 10^3/u L Nucleated RBC % (a uto) 0 % Nucleated RBCs # 0.0 /100WBC Sodium 130 L (136-145) mmol/L Potassium 4.1 (3.5-5.1) mmol/L Chloride 95 L (98-107) mmol/L Carbon Dioxide 22 (22-29) mmol/L Anion Gap 17.1 (5-19) BUN 14 (6-20) mg/dL Creatinine 0.8 (0.7-1.2) mg/dL GFR Calculation 100.4 (90-130) mL/min Glucose 192 H (65-115) mg/dL Calculated Osmolal ity 276 L (285-295) mOsm/k g Calcium 9.4 (8.5-10.5) mg/dL Total Bilirubin 0.9 (0.15-1.2) mg/dL AST 161 H (0-40) U/L ALT 113 H (0-41) U/L Alkaline Phosphata se 112 (40-130) IU/L Troponin T Baselin e 6 (0-15) ng/L Troponin T 120 Min jerod (0-15) ng/L Delta Troponin T (0-10) ABS# Total Protein 7.4 (6.6-8.7) g/dL Albumin 4.1 (3.5-5.2) g/dL Globulin 3.3 (1.3-4.6) g/dL 12/27/20 Range/Units 11:13 WBC (4.0-10.0) 10^3/ uL RBC (4.1-5.3) 10^6/u L Hgb (11.7-16.6) g/dL Hct (42.0-52.0) % MCV (80-94) fl MCH (28.0-34.0) pg MCHC (30.0-36.0) g/dL RDW (12.1-15.1) % Plt Count (130-400) 10^3/c mm MPV (7.4-10.4) fL Neut % (Auto) % Lymph % (Auto) % [place] % (Auto) % Eos % (Auto) % Baso % (Auto) % Neut # (Auto) (1.8-7.7) 10^3/u L Lymph # (Auto) (0.8-4.8) 10^3/u L [place] # (Auto) (0.2-0.9) 10^3/u L Eos # (Auto) (0.0-0.8) 10^3/u L Baso # (Auto) (0.0-0.1) 10^3/u L Nucleated RBC % (a uto) % Nucleated RBCs # /100WBC Sodium (136-145) mmol/L Potassium (3.5-5.1) mmol/L Chloride (98-107) mmol/L Carbon Dioxide (22-29) mmol/L Anion Gap (5-19) BUN (6-20) mg/dL Creatinine (0.7-1.2) mg/dL GFR Calculation (90-130) mL/min Glucose (65-115) mg/dL Calculated Osmolal ity (285-295) mOsm/k g Calcium (8.5-10.5) mg/dL Total Bilirubin (0.15-1.2) mg/dL AST (0-40) U/L ALT (0-41) U/L Alkaline Phosphata se (40-130) IU/L Troponin T Baselin e (0-15) ng/L Troponin T 120 Min jerod 6.00 (0-15) ng/L Delta Troponin T 0 (0-10) ABS# Total Protein (6.6-8.7) g/dL Albumin (3.5-5.2) g/dL Globulin (1.3-4.6) g/dL Discharge Plan Discharge Patient Disposition: Home Clinical Impression: Atrial fibrillation, Palpitations Condition: Stable Prescriptions: No Action multivitamin [Multiple Vitamins] Tablet 1 tab PO QAM RF: 0 budesonide-formoterol [Symbicort] 160-4.5 mcg/actuation HFA aerosol inhaler 2 puff INHALATION BID RF: 0 Aspir-81 81 mg Tablet,Delayed Release (Dr/Ec) 81 mg PO QAM RF: 0 ibuprofen 200 mg Tablet 400 mg PO Q4H PRN (Reason: Pain) RF: 0 lisinopril 20 mg tablet 20 mg PO QAM RF: 0 amlodipine 2.5 mg tablet 2.5 mg PO QAM RF: 0 chlorthalidone 25 mg tablet 25 mg PO QAM RF: 0 Discharge Orders: Discharge ED (Routine); Ordered 12/27/20 Ordered By: Germain Downey Referrals: Ronal Mckenzie DO [Primary Care Provider] - Patient Instructions: Opioid Safety Activity Restrictions/Additional Instructions: Enoch bandage will call to make arrangements for Holter monitor. Coding Level of Care Code ED Plunger Scoop Operator for Chg Fwd Exam Comprehensive
[2020-12-27 09:54] LABS: Alanine Aminotransferase 113 U/L (0-41); Albumin Level 4.1 g/dL (3.5-5.2); Alkaline Phosphatase 112 IU/L (40-130); Anion Gap 17.1 (5-19); Aspartate Amino Transferase 161 U/L (0-40); Blood Urea Nitrogen 14 mg/dL (6-20); Calcium 9.4 mg/dL (8.5-10.5); Carbon Dioxide 22 mmol/L (22-29); Chloride 95 mmol/L (98-107); Globulin 3.3 g/dL (1.3-4.6); Glomerular Filtration Rate 100.4 mL/min (90-130); Glucose 192 mg/dL (65-115); Osmolality Calculated 276 mOsm/kg (285-295); Potassium 4.1 mmol/L (3.5-5.1); Sodium 130 mmol/L (136-145); Total Bilirubin 0.9 mg/dL (0.15-1.2); Total Protein 7.4 g/dL (6.6-8.7); Troponin(5th) Baseline 6 ng/L (0-15)
[2020-12-27 09:58] VITALS: BP 116/78; PULSE 94; RESP 16; O2SAT 96
[2020-12-27] MEDS: aspirin 81 mg Chew Tablet 324 MG PO (09:58)
--- NOTE | 2020-12-27 10:34 | PC.PHAR ---
pt states he takes care of his own medications-ext med history shows lisinopril last filled on 12/18/20 90d/s for 20mg bid-pt states he just takes 20mg qam-pt states he has a symbicort inhaler but has been out for a month states he needs to get it refilled-pt states he has been of sotalol for a few months ext med history shows last filled on 09/16/20 90d/s
[2020-12-27 11:20] VITALS: BP 126/91; PULSE 86; O2SAT 94
--- NOTE | 2020-12-27 11:20 | ECG_ITS ---
[facility] Test Date: 2020-12-27 Pat Name: Dung Gomez Department: Room: Gender: Male Care Transition Manager: : 1965 Requested By: Germain Garcia Order Number: [id number] Robles MD: Amber Bernabe M.D. Measurements Intervals [place] Rate: 84 P: -37 HI: 211 QRS: 13 QRSD: 77 T: -2 QT: 379 QTc: 450 Interpretive Statements SINUS RHYTHM WITH FIRST DEGREE AV BLOCK SEPTAL MYOCARDIAL INFARCTION , OF INDETERMINATE AGE [40+ ms Q WAVE IN V1/V2] Compared to ECG 12/27/2020 09:20:02 First degree AV block now present Incomplete right bundle-branch block no longer present Myocardial infarct finding still present Electronically Signed On 12-27-2020 13:14:55 CDT by Amber Bernabe M.D. [id number]
[2020-12-27 11:49] LABS: Troponin 5 2HR Delta 0 ABS# (0-10)
[2020-12-27 12:41] VITALS: BP 144/94; PULSE 85; RESP 14; O2SAT 95
--- NOTE | 2020-12-28 10:35 | DCPLANNER ---
global sourcing manager had message to schedule an outpatient stress test and a 48 hour halter monitor for patient. global sourcing manager also had message to schedule a follow up appointment for patient with Dr. Bernabe at [facility] [place]. global sourcing manager faxed signed order to centralized scheduling for stress test, who will call patient with appointment information. global sourcing manager faxed signed order for a 48 halter monitor to [facility], clinic will call patient with appointment information. global sourcing manager will call [facility] and will schedule a follow up appointment.
--- NOTE | 2020-12-28 14:55 | DCPLANNER ---
group product manager had message to schedule an outpatient stress test, and a 48 hour halter monitor. group product manager faxed signed order to centralized scheduling for a stress test. group product manager faxed signed order to holter monitor to [facility]. group product manager also had message to schedule a follow up appointment for patient with heart care. group product manager called heart care, spoke with Ada, gave clinic patients information. A follow up appointment was scheduled for December at 1:45 with Margie. group product manager called phone number [phone], gave patient the appointment information.
--- NOTE | 2020-12-30 10:25 | DCPLANNER ---
Patient has an outpatient stress test scheduled for Sunday, January 12, 2021 at 10:45.
--- NOTE | 2021-01-28 09:24 | DCPLANNER ---
Patient had a stress test and halter monitor scheduled - appointment cancelled Patient had an appointment scheduled for 12.30.20 with [facility] care - patient did attend appointment.
== END 2020-12-27 12:41 | disposition home or self-care (01) ==
PROVIDERS: Emergency Provider Family Medicine; PCP Internal Medicine
DX: I48.0 Paroxysmal atrial fibrillation (principal); R00.2 Palpitations; J44.9 Chronic obstructive pulmonary disease, unspecified; E78.00 Pure hypercholesterolemia, unspecified; I10 Essential (primary) hypertension; F17.200 Nicotine dependence, unspecified, uncomplicated; Z79.82 Long term (current) use of aspirin
CPT/HCPCS: 71045; 80053; 84484; 85025; 93005; 99284

== ENCOUNTER 2021-07-25 12:06 | Outpatient (CLI) | payer OTHER, SELFPAY ==
--- NOTE | 2021-07-25 12:30 | CT_ITS ---
WS: [id number] CT ABDOMEN WITH CONTRAST HISTORY: ACUTE ABD PAIN Contiguous single phase 5 mm axial imaging performed to the abdomen. Oral contrast has been provided. Coronal and sagittal reformats are submitted. All CT scans at [facility] use at least one of these dose optimization techniques: automated exposure control; mA and/or kV adjustment per patient size (includes targeted exams where dose is matched to clinical indication); or iterative reconstruct ion. CONTRAST: Omnipaque 300; 95 mL IV. DLP: 884.36 mGy.cm COMPARISON: None available. Lower thorax: Subsegmental atelectasis at the LEFT lung base. No pneumonia. Heart size is normal. Sma ll hiatal hernia. Recanalized umbilical vein. Liver: Normal. No intrahepatic dilatation. No mass. Normal portal vein. Gallbladder: Normal. Pancreas: Normal. Spleen: Spleen is top normal size at 13.2 cm in length. Adrenals: Normal. Right kidney: Normal. Left kidney: Normal. Aorta: 2 GI tract: Stomach is negative. No oral contrast is present within the stomach. No adenopathy or free fluid. Abdominal wall: Ventral abdominal wall hernia. There is a recanalized umbilical vein noted. Visualized osseous structures: Advanced degenerative changes throughout the lumbar spine. L4 anteroli sthesis at 14 mm. 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 CT/CT abdomen w con* [id number] IMPRESSION: 1. Recanalized umbilical vein. 2. Spleen is top normal size. 3. By CT liver does not appear cirrhotic at this time. 4. No ascites or adenopathy. 5. Small ventral abdominal wall hernia at the umbilicus. There is a small amou nt of fluid involving the hernia site.
[2021-07-25] MEDS: iohexol 300 mg/mL 50 mL Btl PO (12:39)
[2021-07-25] MEDS: iohexol 300 mg/mL 100 mL Btl IV (14:02)
== END 2021-07-25 12:07 | disposition home or self-care (01) ==
LOC: RAD 12:10
PROVIDERS: PCP Internal Medicine; Visit Provider Internal Medicine
DX: K43.9 Ventral hernia without obstruction or gangrene (principal)
CPT/HCPCS: 74160